=== PATIENT | male | born 1965 | race Two or more races ===

== ENCOUNTER 2020-06-01 07:59 | Outpatient (REF) | payer OTHER, SELFPAY ==
[2020-06-01 09:02] LABS: Cholesterol 200 mg/dL; HDL Cholesterol 44 mg/dL; LDL Cholesterol Calculated 80 mg/dl; Triglycerides 381 mg/dL
== END 2020-06-01 08:00 | disposition home or self-care (01) ==
LOC: HO.LAB 07:59
PROVIDERS: Visit Provider Internal Medicine
DX: E78.5 Hyperlipidemia, unspecified (principal)
CPT/HCPCS: 36415; 80061

== ENCOUNTER 2021-03-27 08:35 | Outpatient (REF) | payer BC, SELFPAY ==
[2021-03-27 08:47] LABS: MANUAL DIFF FLAG NO
[2021-03-27 09:02] LABS: Basophils Absolute Auto 0.1 X10*3/uL (0.0-0.2); Basophils Percent Auto 1.2 % (0-2); Eosinophils Absolute Auto 0.2 X10*3/uL (0.0-0.4); Eosinophils Percent Auto 2.5 % (0-4); Hematocrit 45.3 % (42.0-52.0); Hemoglobin 14.9 g/dl (14.0-18.0); Imm Gran Abs Auto 0.03 X10*3/uL (0.00-0.03); Imm Gran Pct Auto 0.4 % (0.0-0.4); Lymphocytes Absolute Auto 1.7 X10*3/uL (1.2-4.9); Mean Corpuscular HGB Conc 32.9 g/dl (31.0-36.0); Mean Corpuscular Hemoglobin 29.6 pg (27.0-33.0); Mean Corpuscular Volume 90.1 fL (80.0-98.0); Mean Platelet Volume 9.2 fL (9.4-12.4); Monocytes Absolute Auto 0.5 X10*3/uL (0.1-1.2); Monocytes Percent Auto 6.6 % (2-11); Neutrophils Absolute Auto 4.7 x10*3/uL (2.0-8.3); Neutrophils Percent Auto 65.3 % (45-73); Platelet Count 266 X10*3/uL (160-400); Red Blood Count 5.03 X10*6/uL (4.60-5.80); Red Cell Distribution Width 13.1 % (11.0-16.0); White Blood Count 7.3 X10*3/uL (4.8-10.8)
[2021-03-27 09:23] LABS: Alanine Aminotransferase 15 U/L (0-40); Albumin Level 4.5 g/dL (3.5-5.0); Alkaline Phosphatase 53 U/L (39-117); Anion Gap 10 (12-20); Aspartate Amino Transferase 17 U/L (5-37); Bilirubin Total 0.7 mg/dL (0.0-1.0); Blood Urea Nitrogen 13 mg/dL (9-16); Calcium 9.9 mg/dL (8.4-10.2); Carbon Dioxide 29 mmol/L (22-29); Chloride 104 mmol/L (96-108); Cholesterol 178 mg/dL; Estimated Glomerular Filt Rate > 60; Glucose Fasting 105 mg/dL (60-99); HDL Cholesterol 42 mg/dL; LDL Cholesterol Calculated 94 mg/dl; Sodium 139 mmol/L (135-145); Total Protein 7.1 g/dL (6.5-8.0); Triglycerides 212 mg/dL
[2021-03-27 09:45] LABS: Thyroid Stimulating Hormone 1.72 uIU/mL (0.32-4.0)
== END 2021-03-27 08:36 | disposition home or self-care (01) ==
LOC: HO.LAB 08:35
PROVIDERS: PCP Internal Medicine; Visit Provider Internal Medicine
DX: Z00.00 Encounter for general adult medical examination without abnormal findings (principal); E11.9 Type 2 diabetes mellitus without complications; E03.9 Hypothyroidism, unspecified
CPT/HCPCS: 36415; 80053; 80061; 84443; 85025

== ENCOUNTER 2021-07-05 07:09 | Outpatient (REF) | payer BC, SELFPAY ==
[2021-07-05 07:54] LABS: Cholesterol 212 mg/dL; HDL Cholesterol 42 mg/dL; Triglycerides 454 mg/dL
== END 2021-07-05 07:10 | disposition home or self-care (01) ==
LOC: HO.LAB 07:09
PROVIDERS: PCP Internal Medicine; Visit Provider Internal Medicine
DX: Z00.00 Encounter for general adult medical examination without abnormal findings (principal)
CPT/HCPCS: 36415; 80061

== ENCOUNTER 2021-08-09 07:11 | Outpatient (REF) | payer BC, SELFPAY ==
[2021-08-09 08:51] LABS: Cholesterol 186 mg/dL; HDL Cholesterol 38 mg/dL; LDL Cholesterol Calculated 110 mg/dl; Triglycerides 191 mg/dL
== END 2021-08-09 07:12 | disposition home or self-care (01) ==
LOC: HO.LAB 07:11
PROVIDERS: PCP Internal Medicine; Visit Provider Internal Medicine
DX: Z00.00 Encounter for general adult medical examination without abnormal findings (principal)
CPT/HCPCS: 36415; 80061

== ENCOUNTER 2021-10-20 08:00 | Outpatient (RCR) | payer BC, SELFPAY ==
--- NOTE | 2021-09-15 12:18 | MHC.PT.EP ---
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 UPON EXAM IMPAIRMENTS INCLUDE DECREASED ROM, DECREASED STRENGTH, ALTERED POSTURE AND POSITIONING, INCREASED UPPER TRAP GUARDING, AND INCREASED PAIN AND EDEMA. FUNCTIONAL LIMITATIONS INCLUDE DECREASED ABILITY TO PERFORM HOMEMAKING AND SELF-CARE TASKS, DECREASED ABILITY TO PERFORM PUSHING, PULLING, LIFTING AND REACHING. INABILITY TO DRIVE AND PERFORM WORK TASKS, DECREASED PARTICIPATION IN COMMUNITY AND RECREATIONAL ACTIVITIES AND DISRUPTED SLEEP. THE PT IS A GOOD CANDIDATE FOR SKILLED PT DUE TO AGE, POTENTIAL REMEDIATION OF IMPAIRMENTS, TYPICAL DISEASE/CONDITION PROGRESSION AND PROGNOSIS, COMORBIDITIES, AND MOTIVATION. PT WOULD BENEFIT FROM TAILORED PROGRAM OF THERAPEUTIC ACTIVITIES, FUNCTIONAL TRAINING, GAIT TRAINING, POSTURAL EDUCATION, NEUROMUSCULAR RE-EDUCATION, AND MODALITIES NEEDED. 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 Manual therapy to restore motion and function. Therapeutic exercise to improve strength and flexibility. Neuromuscular re-education for posture and balance. Therapeutic activities to return to functional activities of daily living. Electronically signed by: SYMONE LEUNG PT, DPT Please sign and return to therapist. Thank you for your referral.
== END 2021-11-28 09:25 | disposition home or self-care (01) ==
LOC: HO.PT 08:00
PROVIDERS: PCP Internal Medicine; Visit Provider Internal Medicine
DX: M54.12 Radiculopathy, cervical region (principal)
CPT/HCPCS: 97110; 97140; 97161; 97530

== ENCOUNTER 2021-12-26 10:29 | Outpatient (REF) | payer BC, SELFPAY ==
--- NOTE | ~2021-12-26 | MR_ITS ---
EXAMINATION: MR CERVICAL SPINE WITHOUT CONTRAST CLINICAL INFORMATION: 56-year-old with complaints of neck pain radiating to the left shoulder and mid back. Cervical disc degeneration, unspecified cervical region. COMPARISON: 07/19/2010 MRI TECHNIQUE: MRI of the cervical spine was obtained using routine sequences without contrast. Technical note: Images are degraded by poor signal. FINDINGS: Alignment: There is lordotic loss with mild reversal of the normal lordotic curvature centered at C5-C6 similar to the previous exam. There is trace anterolisthesis at C3-C4 on current study. Craniocervical Junction/C1-C2 Articulations: Intact and aligned. Visualized Intracranial Structures: Grossly unremarkable within the limitations of the exam. Limited study. Vertebral Bodies: Vertebral body heights are well-maintained stable in appearance. Disc Spaces and Endplates: Vadqmoon-ay-fdyukx intervertebral disc space height loss at C5-C6 and C6-C7 slightly progressed from previous exam with disc desiccation, Schmorl's nodes and spondylosis, mildly progressed. Anterolateral spondylosis asymmetric to the left at C7-T1 has developed on current study. Disc desiccation has developed at C3-C4 and C4-C5. Bone Marrow: Mild subchondral marrow edema is seen at the left C2-C3 and C3-C4 facet joints on current study. No other definite marrow edema is identified. No suspicious marrow replacing process identified. C2-C3: Small left paramedian disc osteophyte complex has developed since previous exam with minimal indentation of the left ventral thecal sac without cord impingement or canal stenosis. There is uncovertebral spurring on the left progressed from previous exam with severe left-sided facet arthropathy also progressed from previous study. There is moderate left-sided neural foraminal stenosis progressed from prior exam. Mild right-sided facet arthropathy also progressed. C3-C4: Small central disc osteophyte complex and slight anterolisthesis at this level results in mild indentation of the ventral thecal sac without cord impingement or canal stenosis. Severe left-sided facet arthropathy has progressed from previous study. Dbwb-br-jywdnpim right-sided facet arthrosis also progressed. Uncovertebral spurring noted bilaterally. Neural foramina at this level is difficult to evaluate due to excessive image noise and poor signal. However, there appears to be moderate right-sided and tjstqkof-np-cpvsrn left-sided neural foraminal stenosis progressed from previous exam. C4-C5: Small central disc protrusion with mild indentation of the ventral thecal sac without cord impingement on current study without canal stenosis. Vidludiw-nr-unrroj left-sided and thmc-uf-aoxvwypm right-sided facet arthropathy noted progressed from previous study. Uncovertebral spurring noted. Neural foramina at this level is difficult to evaluate due to excessive image noise and poor signal. However, there appears to be severe left-sided and moderate right-sided neural foraminal stenosis progressed from previous exam. C5-C6: Broad-based disc osteophyte complex again noted at this level, with effacement of the ventral dural sac resulting in slight ventral cord flattening, similar to the previous study associated with mild central canal stenosis unchanged in appearance. Bilateral uncovertebral and facet arthropathy are again noted, with mpyviwev-ia-tqhtul bilateral neural foraminal stenosis, probably progressed from previous exam. Neural foramina at this level is difficult to evaluate due to excessive image noise and poor signal. C6-C7: Broad-based disc protrusion similar to previous exam with moderate flattening the ventral dural sac without cord impingement. Borderline spinal canal stenosis is stable. Bilateral uncovertebral spurring is again noted. Neural foramina at this level is difficult to evaluate due to excessive image noise and poor signal. However, there is moderate right and severe left-sided neural foraminal stenosis, possibly somewhat progressed. C7-T1: No disc herniation or canal stenosis. Mild facet arthrosis noted bilaterally without significant canal or neuroforaminal stenosis. Small perineural cyst in the right neural foramen on current study. T1-T2: No disc herniation or canal stenosis. Mild facet arthropathy bilaterally noted with minor foraminal narrowing bilaterally. Spinal Cord: Small central syrinx in the spinal cord at C6-C7 stable in appearance. Tiny central syrinx at T1-T2 also unchanged with a small central syrinx at T2-T3 unchanged. Otherwise normal spinal cord signal without focal spinal cord lesion. Extracranial Soft Tissues: Limited assessment with suboptimal visualization. MR/MR cervical spine wo con IMPRESSION: 1. Slight lordotic reversal at C5-C6 stable in appearance with trace anterolisthesis at C3-C4 which is a new finding. 2. Discogenic degenerative changes and spondylosis at C5-C6 and C6-C7 progressed from previous study with disc osteophyte complex at C5-C6 and broad-based disc protrusion at C6-C7 similar to the previous study with mild flattening of the ventral aspect of the spinal cord at C5-C6 unchanged associated with stable mild central canal stenosis at this level. 3. Small left paramedian disc osteophyte complex at C2-C3, small central disc osteophyte complex at C3-C4 and small central disc protrusion at C4-C5 on current study without cord impingement or canal stenosis. 4. Severe facet arthropathy on the left at C2-C3 and C3-C4 and wjsyxupd-au-vlsnxs facet arthropathy on the left at C4-C5 also progressed from previous exam with some progression of right-sided facet arthrosis as well. There is multilevel uncovertebral spurring as well. Neural foramina at this level is difficult to evaluate due to excessive image noise and poor signal. However, there is multilevel bilateral bony neural foraminal stenosis as detailed by level above some of which may have progressed from previous study. Given the limitations of the current exam, CT may be beneficial for better evaluation of the neural foramina. 5. Small central syrinx cavities are noted at C6-C7, T1-T2 and T2-T3 unchanged in appearance, likely of a benign etiology.
== END 2021-12-26 10:30 | disposition home or self-care (01) ==
LOC: HO.MRI 10:29
PROVIDERS: Visit Provider Anesthesiology
DX: M50.30 Other cervical disc degeneration, unspecified cervical region (principal); M47.812 Spondylosis without myelopathy or radiculopathy, cervical region; M54.12 Radiculopathy, cervical region
CPT/HCPCS: 72141

== ENCOUNTER 2022-04-21 09:14 | Outpatient (REF) | payer BC, SELFPAY ==
[2022-04-21 09:36] LABS: MANUAL DIFF FLAG NO
[2022-04-21 10:01] LABS: Basophils Absolute Auto 0.1 X10*3/uL (0.0-0.2); Basophils Percent Auto 1.1 % (0-2); Eosinophils Absolute Auto 0.2 X10*3/uL (0.0-0.4); Eosinophils Percent Auto 2.3 % (0-4); Hemoglobin 15.3 g/dl (14.0-18.0); Imm Gran Abs Auto 0.04 X10*3/uL (0.00-0.03); Imm Gran Pct Auto 0.5 % (0.0-0.4); Lymphocytes Absolute Auto 2.1 X10*3/uL (1.2-4.9); Lymphocytes Percent Auto 26.5 % (20-40); Mean Corpuscular HGB Conc 33.3 g/dl (31.0-36.0); Mean Corpuscular Hemoglobin 29.5 pg (27.0-33.0); Mean Corpuscular Volume 88.8 fL (80.0-98.0); Mean Platelet Volume 9.2 fL (9.4-12.4); Monocytes Absolute Auto 0.5 X10*3/uL (0.1-1.2); Monocytes Percent Auto 6.5 % (2-11); Neutrophils Percent Auto 63.1 % (45-73); Platelet Count 296 X10*3/uL (160-400); Red Blood Count 5.18 X10*6/uL (4.60-5.80); Red Cell Distribution Width 13.3 % (11.0-16.0)
[2022-04-21 10:30] LABS: Alanine Aminotransferase 18 U/L (0-40); Albumin Level 4.6 g/dL (3.5-5.0); Alkaline Phosphatase 59 U/L (39-117); Anion Gap 15 (12-20); Aspartate Amino Transferase 18 U/L (5-37); Bilirubin Total 0.5 mg/dL (0.0-1.0); Blood Urea Nitrogen 16 mg/dL (9-16); Calcium 9.8 mg/dL (8.4-10.2); Carbon Dioxide 25 mmol/L (22-29); Chloride 104 mmol/L (96-108); Cholesterol 223 mg/dL; Estimated Glomerular Filt Rate > 60; Glucose Fasting 108 mg/dL (60-99); HDL Cholesterol 35 mg/dL; LDL Cholesterol Calculated 119 mg/dl; Potassium 4.6 mmol/L (3.3-5.1); Sodium 139 mmol/L (135-145); Total Protein 7.3 g/dL (6.5-8.0); Triglycerides 348 mg/dL
== END 2022-04-21 09:15 | disposition home or self-care (01) ==
LOC: HO.LAB 09:14
PROVIDERS: Visit Provider Internal Medicine
DX: Z13.0 Encounter for screening for diseases of the blood and blood-forming organs and certain disorders involving the immune mechanism (principal); I10 Essential (primary) hypertension; E78.5 Hyperlipidemia, unspecified
CPT/HCPCS: 36415; 80053; 80061; 85025

== ENCOUNTER → 2022-06-11 09:27 | Outpatient (BNVA) | payer BC, SELFPAY | PROVIDERS: PCP Internal Medicine; Visit Provider Anesthesiology | DX: Z13.89 Encounter for screening for other disorder (principal) ==

== ENCOUNTER 2022-06-13 10:00 | Outpatient (RCR) | payer BC, SELFPAY ==
--- NOTE | 2022-03-12 18:12 | MHC.PT.EP ---
[facility] [place] Office [place] Office [place] Office [address] Eulalia Biggs [address] [phone] F: [phone] F: [phone] F: [phone] F: [phone] Physical Therapy Plan of Care Date of Evaluation: Date of Surgery: N/A Diagnosis: spondylosis without myelopathy or radiculopathy, cervical region cervicalgia other cervical disc degeneration, unspecified cervical region Assessment: Pt is a pleasant and motivated 56yo M who presents to PT with neck pain. He previously had L UE radicular symptoms which improved with gabapentin. 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 He presents to PT with current impairments in pain, decreased cervical ROM, decreased L shoulder ROM, decreased strength, impaired posture, and soft tissue restrictions. He is limited functionally by lifting, reaching, turning his head, driving, and sleeping. He is an excellent candidate for skilled PT in order to address current impairments to facilitate return to PLOF. He is recommended to be seen 2x/week for 4 weeks and will be reassessed at that time. 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 Manual therapy to restore motion and function. Therapeutic exercise to improve strength and flexibility. Neuromuscular re-education for posture and balance. Therapeutic activities to return to functional activities of daily living. Electronically signed by: Reema Medina, PT, DPT Please sign and return to therapist. Thank you for your referral.
--- NOTE | 2022-06-13 13:55 | MHC.PT.DC ---
[facility] [place] Office [place] Office [place] Office [address] Eulalia Biggs [address] [phone] F: [phone] F: [phone] F: [phone] F: [phone] Physical Therapy Discharge Report Diagnosis: spondylosis without myelopathy or radiculopathy, cervical region cervicalgia other cervical disc degeneration, unspecified cervical region Date of Surgery: N/A Date of Evaluation: 03/12/22 Date of Discharge: 06/13/22 Treatments to Date: 14 Cancellations to Date: No Shows to Date: Discharge Status: Achieved Goals Improved Function Independent with HEP Discharge Summary: Pt was seen for PT from 03/12/22-06/13/22. Pt has made excellent progress since SOC. He has met his STGs and LTGs. He is able to sit for prolonged periods symptom free. He returned to golfing without pain. He has consistently had no neck pain, and no radicular symptoms. He demonstrates improvements in ROM, strength, and postural awareness. He is I with HEP. Pt is being D/C from skilled PT at this time. Provided pt with printed, updated copy of HEP and blue thera band and pt verbalized understanding. Pt reports no further questions or concerns for PT at this time. Electronically signed by: Reema Medina, PT, DPT Please sign and return to therapist. Thank you for your referral.
== END 2022-06-13 13:55 | disposition home or self-care (01) ==
LOC: HO.PT 10:00
PROVIDERS: PCP Internal Medicine; Visit Provider Anesthesiology
DX: M47.812 Spondylosis without myelopathy or radiculopathy, cervical region (principal); M50.30 Other cervical disc degeneration, unspecified cervical region
CPT/HCPCS: 97012; 97110; 97140; 97162; 97530

== ENCOUNTER 2022-08-31 07:25 | Outpatient (REF) | payer BC, SELFPAY ==
[2022-08-31 08:44] LABS: Cholesterol 202 mg/dL; HDL Cholesterol 42 mg/dL; LDL Cholesterol Calculated 111 mg/dl; Triglycerides 247 mg/dL
== END 2022-08-31 07:26 | disposition home or self-care (01) ==
LOC: HO.LAB 07:25
PROVIDERS: PCP Internal Medicine; Visit Provider Internal Medicine
DX: E78.5 Hyperlipidemia, unspecified (principal)
CPT/HCPCS: 36415; 80061

== ENCOUNTER 2023-01-04 08:13 | Outpatient (REF) | payer BC, SELFPAY ==
[2023-01-04 08:44] LABS: MANUAL DIFF FLAG NO
[2023-01-04 10:33] LABS: Basophils Absolute Auto 0.1 X10*3/uL (0.0-0.2); Basophils Percent Auto 0.8 % (0-2); Eosinophils Absolute Auto 0.1 X10*3/uL (0.0-0.4); Eosinophils Percent Auto 1.3 % (0-4); Hematocrit 45.6 % (42.0-52.0); Imm Gran Abs Auto 0.04 X10*3/uL (0.00-0.03); Imm Gran Pct Auto 0.5 % (0.0-0.4); Lymphocytes Absolute Auto 1.9 X10*3/uL (1.2-4.9); Lymphocytes Percent Auto 21.3 % (20-40); Mean Corpuscular HGB Conc 32.9 g/dl (31.0-36.0); Mean Corpuscular Hemoglobin 29.9 pg (27.0-33.0); Mean Platelet Volume 9.7 fL (9.4-12.4); Monocytes Absolute Auto 0.6 X10*3/uL (0.1-1.2); Monocytes Percent Auto 6.6 % (2-11); Neutrophils Percent Auto 69.5 % (45-73); Platelet Count 253 X10*3/uL (160-400); Red Blood Count 5.01 X10*6/uL (4.60-5.80); Red Cell Distribution Width 13.1 % (11.0-16.0); White Blood Count 8.7 X10*3/uL (4.8-10.8)
[2023-01-04 11:09] LABS: Alanine Aminotransferase 20 U/L (0-40); Albumin Level 4.2 g/dL (3.5-5.0); Alkaline Phosphatase 55 U/L (39-117); Anion Gap 13 (12-20); Aspartate Amino Transferase 18 U/L (5-37); Bilirubin Total 0.6 mg/dL (0.0-1.0); Blood Urea Nitrogen 14 mg/dL (9-16); Calcium 9.4 mg/dL (8.4-10.2); Carbon Dioxide 28 mmol/L (22-29); Chloride 102 mmol/L (96-108); Cholesterol 192 mg/dL (<200); Estimated Glomerular Filt Rate > 60; Glucose Fasting 94 mg/dL (60-99); HDL Cholesterol 48 mg/dL (>40); LDL Cholesterol Calculated 113 mg/dL (<100); Sodium 139 mmol/L (135-145); Total Protein 6.9 g/dL (6.5-8.0); Triglycerides 155 mg/dL (<150)
== END 2023-01-04 08:14 | disposition home or self-care (01) ==
LOC: HO.LAB 08:13
PROVIDERS: PCP Internal Medicine; Visit Provider Internal Medicine
DX: D64.9 Anemia, unspecified (principal); N28.9 Disorder of kidney and ureter, unspecified; E78.5 Hyperlipidemia, unspecified
CPT/HCPCS: 36415; 80053; 80061; 85025

== ENCOUNTER 2023-01-15 11:41 | Outpatient (AMB) | payer BC, SELFPAY ==
--- NOTE | 2023-01-15 11:41 | A.OFFPC_ITS ---
Vital Signs 01/15/23 11:42 01/15/23 11:54 Height 6 ft Weight 228 lb BMI 30.9 BP 150/90 H 148/90 H Blood Pressure Location Lt brachial Rt brachial Position Sitting Sitting Pulse 84 Pulse Source Pulse Oximeter Pulse Oximetry (%) 98 Oxygen Delivery Method Room Air Intake Visit Reasons: 4 month f/u - due for colonoscopy Publications Manager: Not Required per policy Accompanied by: Self / Same As Patient Allergies No Known Allergies [No Known Allergies*] Allergy (Verified 01/15/23 11:42) Medication List - Last Reconciled 01/15/23 by Joe Reyes MD atorvastatin 40 mg PO QPM cyclobenzaprine 10 mg PO TID PRN fenofibrate 160 mg PO DAILY gabapentin 300 mg PO TID 30 days Tobacco use date assessed: 04/24/22 Dental Screening Dental Screen Date: 01/15/23 Did you have a dental visit in the last 12 months?: Yes Did you have a dental problem in the last 6 months where you did not have access to dental care?: No Was dental information given to patient?: Patient has dentist HPI 4 month f/u - due for colonoscopy HPI Details hyperlipidemia on rx; doing well; compliant [facility] Medical History Hyperlipidemia Surgical History No pertinent past surgical history Family History Father CAD (coronary artery disease) Stroke Mother Hypothyroidism Hypercholesterolemia Brother No problems noted. Brother No problems noted. Brother No problems noted. Sister No problems noted. Son No problems noted. Son No problems noted. Social History Housing: House Patient Tobacco Use Status: Never used Tobacco Tobacco use type: Cigarette e-Cigarette/Vaping Use: Never Used Second Hand Smoke Exposure: No service: No Current occupational status: employed Cognitive needs: No Hearing needs: No Vision needs: No Questionnaire PHQ-9 Over the last 2 weeks, how often have you been bothered by any of the following problems? 1. Little interest or pleasure in doing things: not at all 2. Feeling down, depressed, or hopeless: not at all 3. Trouble falling or staying asleep, or sleeping too much: not at all 4. Feeling tired or having little energy: not at all 5. Poor appetite or overeating: not at all 6. Feeling bad about yourself - or that you are a failure or have let yourself or your family down: not at all 7. Trouble concentrating on things, such as reading the newspaper or watching television: not at all 8. Moving or speaking so slowly that other people could have noticed. Or the opposite - being so fidgety or restless that you have been moving around a lot more than usual: not at all 9. Thoughts that you would be better off or of hurting yourself in some way: not at all Total score: 0 Depression Screening Interpretation: Negative Depression Screening Done: Yes Source: Developed by Drs. Bob Valentine, Beverly Johnson, Samuel Estrada and colleagues, with an educational peewee from [employer]. Thrive Questionnaire Date Thrive assessed: 04/24/22 AUDIT C Alcohol Use Questionnaire (AUDIT-C) 1. How often do you have a drink containing alcohol?: 2-3 times a week 2. How many drinks containing alcohol do you have on a typical day when you are drinking?: 1 or 2 Total Score: 3 Score Reviewed/Action Taken: Yes KENROY-7 AMB Questionnaire KENROY-7 Date KENROY - 7 assessed: 04/24/22 Source: Developed by Drs. Bob Valentine, Beverly Johnson, Samuel Estrada and colleagues, with an educational peewee from [employer]. Review of Systems Const Denies chills, Denies headache(s) and Denies weight loss ENT Denies headache(s) Card Denies chest pain, Denies syncope, Denies irregular heart rhythm and Denies dyspnea Resp Denies chest congestion, Denies cough and Denies dyspnea GI Denies abdominal pain, Denies change in stool character, Denies nausea and Denies vomiting Musc Denies deformity and Denies joint swelling Neuro Denies syncope and Denies headache(s) Physical exam (Primary Care) Vital Signs: Last Vital Signs Pulse 84 01/15/23 11:42 BP 148/90 H 01/15/23 11:54 Pulse Ox 98 01/15/23 11:42 Oxygen Delivery Method Room Air 01/15/23 11:42 BMI result Body Mass Index 30.9 Tobacco/Smoking Status: Tobacco use Status Tobacco use date assessed 04/24/22 01/15/23 11:46 Patient Tobacco Use Status Never used Tobacco 01/15/23 11:46 Tobacco use type Cigarette 01/15/23 11:46 e-Cigarette/Vaping Use Never Used 01/15/23 11:46 PHQ-9: PHQ-9 Score PHQ-9: Total score 0 01/15/23 11:46 Depression Screening Interpretation: Negative Thrive Assessment: Date of Thrive Assessment Date Thrive assessed 04/24/22 01/15/23 11:46 Const General: cooperative, comfortable, no acute distress and alert Neck Neck: Yes no lymphadenopathy Thyroid: Thyroid normal Resp Effort & Inspection: normal respiratory effort Auscultation: clear to auscultation bilaterally Percussion: percussion normal Cardio Jugular venous distension: no JVD Palpation: normal PMI Rate: regular rate Rhythm: regular rhythm Heart sounds: S1 normal heart sound present and S2 normal heart sound present GI Inspection: Yes normal to inspection Palpation (GI): No hepatosplenomegaly present Skin General skin exam: no rashes or lesions noted Extrem General: Yes no clubbing, cyanosis or edema Office Procedures Flu Questionnaire Does the patient have a severe egg allergy?: No Does the patient have severe life threatening allergies?: No Does the patient have a fever or illness today?: No Has the patient ever had Guillain-Sawyer Syndrome?: No Has the patient ever had any past reaction to a flu shot?: No Immunizations flu vacc [id number] 6mos up(PF) 60 mcg(15 mcgx4)/0.5 mL IM syringe Performing Provider: Joe Reyes MD Performing Location: [facility] Administered by: CARMELA Enriquez on 01/15/23 11:53 Dose Route Admin Location Dispensed Lot Number Expiration Date NDC Strategy Lead 0.5 mL IM Left Deltoid 0.5 mL [id number] 10/13/23 34950-000-52 [employer] VIS Given Date VIS Provided VIS Publication Date 01/15/23 Single Vaccine 20 Eligibility Eligibility Date Funding Source Not [facility] Eligible 01/15/23 Private Assessment and Plan Assessment & Plan (1) Hyperlipidemia: Code(s): E78.5 - Hyperlipidemia, unspecified Plan: stable; same rx Orders: Orders Influenza [id number] Immunization Today Z23 - Encounter for immunization Lipid Panel Today E78.5 - Hyperlipidemia, unspecified Coding Level of Care Code Est Pt Level 3 (18629) Diagnoses Hyperlipidemia E78.5
[2023-01-15 11:42] VITALS: BP 150/90; PULSE 84; O2SAT 98; BMI 30.9
[2023-01-15 11:54] VITALS: BP 148/90
== END 2023-01-15 11:59 | disposition home or self-care (01) ==
PROVIDERS: PCP Internal Medicine; Visit Provider Internal Medicine
DX: E78.5 Hyperlipidemia, unspecified (principal); Z23 Encounter for immunization
CPT/HCPCS: 90471; 90686; 99213

== ENCOUNTER 2023-05-02 07:34 | Outpatient (REF) | payer BC, SELFPAY ==
[2023-05-02 08:36] LABS: Cholesterol 202 mg/dL (<200); HDL Cholesterol 36 mg/dL (>40); LDL Cholesterol Calculated 123 mg/dL (<100); Triglycerides 218 mg/dL (<150)
== END 2023-05-02 07:35 | disposition home or self-care (01) ==
LOC: HO.LAB 07:34
PROVIDERS: PCP Internal Medicine; Visit Provider Internal Medicine
DX: E78.5 Hyperlipidemia, unspecified (principal)
CPT/HCPCS: 36415; 80061

== ENCOUNTER 2023-05-03 09:27 | Outpatient (AMB) | payer BC, SELFPAY ==
[2023-05-03 09:30] VITALS: BP 130/88; PULSE 89; O2SAT 99; BMI 30.8
--- NOTE | 2023-05-03 09:30 | MHC.PC.OV ---
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 Civil: Not Required per policy Accompanied by: Self / Same As Patient Allergies No Known Allergies [No Known Allergies*] Allergy (Verified 05/03/23 09:30) Medication List - Last Reconciled 05/03/23 by Joe Reyes MD atorvastatin 40 mg PO QPM cyclobenzaprine 10 mg PO TID PRN fenofibrate 160 mg PO DAILY gabapentin 300 mg PO TID 30 days Tobacco use date assessed: 05/03/23 Dental Screening Dental Screen Date: 05/03/23 Did you have a dental visit in the last 12 months?: Yes Did you have a dental problem in the last 6 months where you did not have access to dental care?: No Was dental information given to patient?: Patient has dentist HPI 3 month follow up ( medications ) HPI Details hyperlipidemia on rx; doing well; chol increased due to dietary indiscretion PFSH Medical History Hyperlipidemia Surgical History No pertinent past surgical history Family History Father CAD (coronary artery disease) Stroke Mother Hypothyroidism Hypercholesterolemia Brother No problems noted. Brother No problems noted. Brother No problems noted. Sister No problems noted. Son No problems noted. Son No problems noted. Social History Housing: House Patient Tobacco Use Status: Never used Tobacco Tobacco use type: Cigarette e-Cigarette/Vaping Use: Never Used Second Hand Smoke Exposure: No service: No Current occupational status: employed Cognitive needs: No Hearing needs: No Vision needs: No Questionnaire PHQ-9 Over the last 2 weeks, how often have you been bothered by any of the following problems? 1. Little interest or pleasure in doing things: not at all 2. Feeling down, depressed, or hopeless: not at all 3. Trouble falling or staying asleep, or sleeping too much: not at all 4. Feeling tired or having little energy: not at all 5. Poor appetite or overeating: not at all 6. Feeling bad about yourself - or that you are a failure or have let yourself or your family down: not at all 7. Trouble concentrating on things, such as reading the newspaper or watching television: not at all 8. Moving or speaking so slowly that other people could have noticed. Or the opposite - being so fidgety or restless that you have been moving around a lot more than usual: not at all 9. Thoughts that you would be better off or of hurting yourself in some way: not at all Total score: 0 Depression Screening Interpretation: Negative Depression Screening Done: Yes [id number] - PHQ-9 Billing: Yes Source: Developed by Drs. Bob Valentine, Beverly Johnson, Samuel Estrada and colleagues, with an educational peewee from [employer]. Thrive Questionnaire Date Thrive assessed: 05/03/23 I am a: Patient What is your living situation today?: I have a steady place to live Within the past 12 months, did the food you bought not last and you didn't have the money to get more?: Never true Within the past 12 months, did you worry whether your food would run out before you got money to buy more?: Never true Do you have trouble paying for medicines?: No Do you have trouble getting transportation to medical appointments?: No Do you have trouble paying your heating and electricity bill?: No Do you have trouble taking care of your child, family member or friend?: No Do you have trouble with day-to-day activities such as bathing, preparing meals, shopping, managing finances, etc.?: No Are you currently unemployed and looking for a job?: No Are you interested in more education?: No Please select the resources that you would like help with: None THRIVE Score: 0 AUDIT C Alcohol Use Questionnaire (AUDIT-C) 1. How often do you have a drink containing alcohol?: 2-3 times a week 2. How many drinks containing alcohol do you have on a typical day when you are drinking?: 1 or 2 Total Score: 3 Score Reviewed/Action Taken: Yes KENROY-7 AMB Questionnaire KENROY-7 Date KENROY - 7 assessed: 05/03/23 Feeling nervous, anxious, or on edge: 0 = Not at all Not being able to stop or control worryin = Not at all Worrying too much about different things: 0 = Not at all Trouble relaxin = Not at all Being so restless that it is hard to sit still: 0 = Not at all Becoming easily annoyed or irritable: 0 = Not at all Feeling afraid as if something awful might happen: 0 = Not at all Total KENROY-7 score (0-4 normal; 5-9 mild; 10-14 moderate; 15-21 severe): 0 Source: Developed by Drs. Bob Valentine, Beverly Johnson, Samuel Estrada and colleagues, with an educational peewee from [employer]. KENROY-7 Assessment Billing KENROY-7 Assessment Tool: KENROY-7 Assessment 55345 Review of Systems Const Denies chills, Denies headache(s) and Denies weight loss ENT Denies headache(s) Card Denies chest pain, Denies syncope, Denies irregular heart rhythm and Denies dyspnea Resp Denies chest congestion, Denies cough and Denies dyspnea GI Denies abdominal pain, Denies change in stool character, Denies nausea and Denies vomiting Musc Denies deformity and Denies joint swelling Neuro Denies syncope and Denies headache(s) Physical exam (Primary Care) Vital Signs: Last Vital Signs Pulse 89 05/03/23 09:30 BP 130/88 05/03/23 09:30 Pulse Ox 99 05/03/23 09:30 Oxygen Delivery Method Room Air 05/03/23 09:30 BMI result Body Mass Index 30.8 Tobacco/Smoking Status: Tobacco use Status Tobacco use date assessed 05/03/23 05/03/23 09:36 Patient Tobacco Use Status Never used Tobacco 05/03/23 09:36 Tobacco use type Cigarette 05/03/23 09:36 e-Cigarette/Vaping Use Never Used 05/03/23 09:36 PHQ-9: PHQ-9 Score PHQ-9: Total score 0 05/03/23 09:36 Depression Screening Interpretation: Negative Thrive Assessment: Date of Thrive Assessment Date Thrive assessed 05/03/23 05/03/23 09:36 Const General: cooperative, comfortable, no acute distress and alert Neck Neck: Yes no lymphadenopathy Thyroid: Thyroid normal Resp Effort & Inspection: normal respiratory effort Auscultation: clear to auscultation bilaterally Percussion: percussion normal Cardio Jugular venous distension: no JVD Palpation: normal PMI Rate: regular rate Rhythm: regular rhythm Heart sounds: S1 normal heart sound present and S2 normal heart sound present GI Inspection: Yes normal to inspection Palpation (GI): No hepatosplenomegaly present Skin General skin exam: no rashes or lesions noted Extrem General: Yes no clubbing, cyanosis or edema Assessment and Plan Assessment & Plan (1) Hyperlipidemia: Code(s): E78.5 - Hyperlipidemia, unspecified Plan: same rx; improve diet Orders: Orders Lipid Panel Today E78.5 - Hyperlipidemia, unspecified Medications: Refilled atorvastatin 40 mg PO QPM 90 tabs 8RF Coding Level of Care Code Est Pt Level 3 (69664) Diagnoses Hyperlipidemia E78.5 Additional Codes KENROY-7 Assessment Billing - KENROY-7 Assessment Tool: KENROY-7 Assessment 50935 ([id number])
== END 2023-05-03 09:45 | disposition home or self-care (01) ==
PROVIDERS: PCP Internal Medicine; Visit Provider Internal Medicine
DX: E78.5 Hyperlipidemia, unspecified (principal)
CPT/HCPCS: 99213

== ENCOUNTER 2023-07-22 11:12 | Outpatient (AMB) | payer BC, SELFPAY ==
--- NOTE | 2023-07-22 11:36 | MHC.OFFVIS ---
Intake Vital Signs 07/22/23 11:37 Height 6 ft Weight 232 lb BMI 31.5 BP 148/82 H Blood Pressure Location Lt brachial Position Sitting Respiration 18 Pulse 84 Pulse Source Pulse Oximeter Pulse Oximetry (%) 96 Oxygen Delivery Method Room Air Intake Visit Reasons: medication follow up Intake Note: Patient comes in medication follow up. Reports pain 07/23. Allergies No Known Allergies [No Known Allergies*] Allergy (Verified 05/03/23 09:30) HPI HPI Comments History of Present Illness Details Niranjan is very pleasant 58 years old gentleman who came to this office after a long period of absence. He reports that he needs a refill of his gabapentin. Last time I started him on gabapentin and he reported very good pain relief. However today apparently he is stated that his pain relief was related to the injection which what I suppose was ultrasound-guided procedure, however the target of the injection was unknown to me. The patient does not know the target. He stated that that injection helped him for a long period of time up to 36 months. He requests me to perform the same injection. I requested him to bring me the operative note of this procedure and I will see if I can repeat this procedure for him here. He will bring me the note and I will schedule this injection. I will renew his gabapentin. results of the MRI dictated as below.? There are some moderate foraminal stenosis and there is some very advanced especially on the left side arthritis in the left as well as in the right side.? He also has significant reduction of the lordosis.?? Of note there is small syrinx cavities in his neck and thoracic spinal cord however he denies any loss of touch a temperature sensation in the upper extremities. Prior:? C/O pain in the left side of the neck radiating into the left upper extremity to the triceps and the level of elbow and into the forearm, he also reports sensation of weakness and numbness in the left upper extremity.? He reports that lifting weight with the left upper extremity and holding heavy loads feels like his left hand is about to give up.? He avoids heavy lifting and heavy holding to perform by the left hand or arm.? 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 He reports that 11 years ago in 2010 he was working on a concrete with a sledgehammer and the he started to experience severe pain radiating into the right upper extremity to the level of triceps and into the elbow.? He received some sort of the injection into the back of his upper shoulder and that eliminated that pain sensation for the next 10 years.? However last few months he started to experience pain is above on the left side.? He reports it is almost the mirror sensation of his old pain on the [facility] Medical History Hyperlipidemia Surgical History No pertinent past surgical history Family History Father CAD (coronary artery disease) Stroke Mother Hypothyroidism Hypercholesterolemia Brother No problems noted. Brother No problems noted. Brother No problems noted. Sister No problems noted. Son No problems noted. Son No problems noted. Social History Housing: House Patient Tobacco Use Status: Never used Tobacco Tobacco use type: Cigarette e-Cigarette/Vaping Use: Never Used Second Hand Smoke Exposure: No service: No Current occupational status: employed Cognitive needs: No Hearing needs: No Vision needs: No Review of Systems Const All systems reviewed & are unremarkable except as noted in HPI and below ENT Reports Normal hearing present Neuro Reports Normal hearing present and Denies Sensory deficit (Neuro) Physical Exam Vital Signs: Last Vital Signs Pulse 84 07/22/23 11:37 Resp 18 07/22/23 11:37 BP 148/82 H 07/22/23 11:37 Pulse Ox 96 07/22/23 11:37 Oxygen Delivery Method Room Air 07/22/23 11:37 BMI result Body Mass Index 31.5 Const General: no acute distress Orientation/consciousness: patient oriented x3 Limitations: no limitations Eyes General: appearance normal, both eyes and all related structures Pupils: Equal, round and reactive pupils present EOM: EOMs intact bilaterally Neck Other: Tenderness on palpation in paraspinal spinal region cervical spine. Spurling maneuver is negative on the left, Lhermitte maneuver is negative. Sneezing and coughing, Valsalva maneuvers aggravate his pain. Reports tingling sensation in the left forearm and hand. Chest Chest palpation & inspection: normal inspection of the chest Resp Effort & Inspection: normal respiratory effort, able to speak in complete sentences, normal respiratory pattern, no audible wheezes and no cough Cardio Jugular venous distension: no JVD GI Inspection: Yes normal to inspection Neuro General: patient oriented x3 and gait normal Cranial nerves: Yes Equal, round and reactive pupils present and Yes Normal hearing present Gait exam (Neuro): Normal gait present Motor exam (neuro): 5/5 motor strength present throughout Sensory Exam: No Sensory deficit (Neuro) Extrem General: No pedal edema Psych Speech and movement: Normal speech and movement present Affect: normal affect Attitude: cooperative Thought process: Normal thought process present Thought content: Normal thought content present Insight: Good insight present (Psych) Judgement: Good judgement present (Psych) Results Reviewed Results Reviewed: MR CERVICAL SPINE WITHOUT CONTRAST CLINICAL INFORMATION: 56-year-old with complaints of neck pain radiating to the left shoulder and mid back. Cervical disc degeneration, unspecified cervical region. COMPARISON: 07/19/2010 MRI TECHNIQUE: MRI of the cervical spine was obtained using routine sequences without contrast. Technical note: Images are degraded by poor signal. FINDINGS: Alignment: There is lordotic loss with mild reversal of the normal lordotic curvature centered at C5-C6 similar to the previous exam. There is trace anterolisthesis at C3-C4 on current study. Craniocervical Junction/C1-C2 Articulations: Intact and aligned. Visualized Intracranial Structures: Grossly unremarkable within the limitations of the exam. Limited study. Vertebral Bodies: Vertebral body heights are well-maintained stable in appearance. Disc Spaces and Endplates: Vusgrmhi-se-tvnhii intervertebral disc space height loss at C5-C6 and C6-C7 slightly progressed from previous exam with disc desiccation, Schmorl's nodes and spondylosis, mildly progressed. Anterolateral spondylosis asymmetric to the left at C7-T1 has developed on current study. Disc desiccation has developed at C3-C4 and C4-C5. Bone Marrow: Mild subchondral marrow edema is seen at the left C2-C3 and C3-C4 facet joints on current study. No other definite marrow edema is identified. No suspicious marrow replacing process identified. C2-C3: Small left paramedian disc osteophyte complex has developed since previous exam with minimal indentation of the left ventral thecal sac without cord impingement or canal stenosis. There is uncovertebral spurring on the left progressed from previous exam with severe left-sided facet arthropathy also progressed from previous study. There is moderate left-sided neural foraminal stenosis progressed from prior exam. Mild right-sided facet arthropathy also progressed. C3-C4: Small central disc osteophyte complex and slight anterolisthesis at this level results in mild indentation of the ventral thecal sac without cord impingement or canal stenosis. Severe left-sided facet arthropathy has progressed from previous study. Crdl-rw-lelbdxpk right-sided facet arthrosis also progressed. Uncovertebral spurring noted bilaterally. Neural foramina at this level is difficult to evaluate due to excessive image noise and poor signal. However, there appears to be moderate right-sided and umojunue-uk-cfibki left-sided neural foraminal stenosis progressed from previous exam. C4-C5: Small central disc protrusion with mild indentation of the ventral thecal sac without cord impingement on current study without canal stenosis. Ggvlwzte-uo-jntkdk left-sided and kryp-zo-pfnfktxk right-sided facet arthropathy noted progressed from previous study. Uncovertebral spurring noted. Neural foramina at this level is difficult to evaluate due to excessive image noise and poor signal. However, there appears to be severe left-sided and moderate right-sided neural foraminal stenosis progressed from previous exam. C5-C6: Broad-based disc osteophyte complex again noted at this level, with effacement of the ventral dural sac resulting in slight ventral cord flattening, similar to the previous study associated with mild central canal stenosis unchanged in appearance. Bilateral uncovertebral and facet arthropathy are again noted, with dbzutjny-cr-ragxmo bilateral neural foraminal stenosis, probably progressed from previous exam. Neural foramina at this level is difficult to evaluate due to excessive image noise and poor signal. C6-C7: Broad-based disc protrusion similar to previous exam with moderate flattening the ventral dural sac without cord impingement. Borderline spinal canal stenosis is stable. Bilateral uncovertebral spurring is again noted. Neural foramina at this level is difficult to evaluate due to excessive image noise and poor signal. However, there is moderate right and severe left-sided neural foraminal stenosis, possibly somewhat progressed. C7-T1: No disc herniation or canal stenosis. Mild facet arthrosis noted bilaterally without significant canal or neuroforaminal stenosis. Small perineural cyst in the right neural foramen on current study. T1-T2: No disc herniation or canal stenosis. Mild facet arthropathy bilaterally noted with minor foraminal narrowing bilaterally. Spinal Cord: Small central syrinx in the spinal cord at C6-C7 stable in appearance. Tiny central syrinx at T1-T2 also unchanged with a small central syrinx at T2-T3 unchanged. Otherwise normal spinal cord signal without focal spinal cord lesion. Extracranial Soft Tissues: Limited assessment with suboptimal visualization. MR/MR cervical spine wo con IMPRESSION: 1. Slight lordotic reversal at C5-C6 stable in appearance with trace anterolisthesis at C3-C4 which is a new finding. ? 2. Discogenic degenerative changes and spondylosis at C5-C6 and C6-C7 progressed from previous study with disc osteophyte complex at C5-C6 and broad-based disc protrusion at C6-C7 similar to the previous study with mild flattening of the ventral aspect of the spinal cord at C5-C6 unchanged associated with stable mild central canal stenosis at this level. ? 3. Small left paramedian disc osteophyte complex at C2-C3, small central disc osteophyte complex at C3-C4 and small central disc protrusion at C4-C5 on current study without cord impingement or canal stenosis. ? 4. Severe facet arthropathy on the left at C2-C3 and C3-C4 and kxwbztqd-pj-qauttn facet arthropathy on the left at C4-C5 also progressed from previous exam with some progression of right-sided facet arthrosis as well. There is multilevel uncovertebral spurring as well. Neural foramina at this level is difficult to evaluate due to excessive image noise and poor signal. However, there is multilevel bilateral bony neural foraminal stenosis as detailed by level above some of which may have progressed from previous study. Given the limitations of the current exam, CT may be beneficial for better evaluation of the neural foramina. ? 5. Small central syrinx cavities are noted at C6-C7, T1-T2 and T2-T3 unchanged in appearance, likely of a benign etiology. ? Assessment & Plan Assessment & Plan (1) Cervicalgia: Code(s): M54.2 - Cervicalgia (2) Spondylosis of cervical spine: Code(s): M47.812 - Spondylosis without myelopathy or radiculopathy, cervical region (3) Cervical radiculopathy: Code(s): M54.12 - Radiculopathy, cervical region (4) Degeneration, intervertebral disc, cervical: Code(s): M50.30 - Other cervical disc degeneration, unspecified cervical region Plan I will renew his gabapentin as it was prescribed before. I also will wait until he will bring me the description of the operative note of the procedure he had to alleviate his pain in the shoulder on the left. After that I will be able to decide whether or not I can repeat this injection here. If it is so I will schedule him for the appointment for the injection with me. It sounds like it was ultrasound-guided procedure. He refers that he received 3 years of pain relief from the procedure. Coding Level of Care Code Est Pt Level 3 (21523) Diagnoses Cervicalgia M54.2 Spondylosis of cervical spine M47.812 Cervical radiculopathy M54.12 Degeneration, intervertebral disc, cervical M50.30
[2023-07-22 11:37] VITALS: BP 148/82; PULSE 84; RESP 18; O2SAT 96; BMI 31.5
== END 2023-07-22 11:53 | disposition home or self-care (01) ==
PROVIDERS: PCP Internal Medicine; Visit Provider Anesthesiology
DX: M47.812 Spondylosis without myelopathy or radiculopathy, cervical region (principal); M54.12 Radiculopathy, cervical region; M50.30 Other cervical disc degeneration, unspecified cervical region
CPT/HCPCS: 99213

== ENCOUNTER → 2023-07-22 11:12 | Outpatient (BNVA) | payer BC, SELFPAY | PROVIDERS: PCP Internal Medicine; Visit Provider Anesthesiology ==

== ENCOUNTER 2023-08-14 07:20 | Outpatient (REF) | payer BC, SELFPAY ==
[2023-08-14 08:33] LABS: Cholesterol 181 mg/dL (<200); HDL Cholesterol 33 mg/dL (>40); LDL Cholesterol Calculated 105 mg/dL (<100); Triglycerides 216 mg/dL (<150)
== END 2023-08-14 07:21 | disposition home or self-care (01) ==
LOC: HO.LAB 07:20
PROVIDERS: Visit Provider Internal Medicine
DX: E78.5 Hyperlipidemia, unspecified (principal)
CPT/HCPCS: 36415; 80061

== ENCOUNTER 2023-08-16 11:21 | Outpatient (AMB) | payer BC, SELFPAY ==
[2023-08-16 11:28] VITALS: BP 142/90; PULSE 77; O2SAT 96; BMI 31.7
--- NOTE | 2023-08-16 11:28 | MHC.PC.OV ---
Vital Signs 08/16/23 11:28 Height 6 ft Weight 234 lb 0.2 oz BMI 31.7 BP 142/90 H Blood Pressure Location Lt brachial Position Sitting Pulse 77 Pulse Source Pulse Oximeter Pulse Oximetry (%) 96 Oxygen Delivery Method Room Air Intake Visit Reasons: 3mth f/u Intake Note: Patient is here to follow up on 3 months Neuropathologist Required: No Allergies No Known Allergies [No Known Allergies*] Allergy (Verified 08/16/23 11:29) Medication List - Last Reconciled 08/16/23 by Joe Reyes MD atorvastatin 40 mg PO QPM cyclobenzaprine 10 mg PO TID PRN fenofibrate 160 mg PO DAILY gabapentin 300 mg PO TID 30 days Tobacco use date assessed: 08/16/23 Dental Screening Dental Screen Date: 05/03/23 HPI 3mth f/u HPI Details hyperlipidemia on rx; doing well PFSH Medical History Hyperlipidemia Surgical History No pertinent past surgical history Family History Father CAD (coronary artery disease) Stroke Mother Hypothyroidism Hypercholesterolemia Brother No problems noted. Brother No problems noted. Brother No problems noted. Sister No problems noted. Son No problems noted. Son No problems noted. Social History Housing: House Patient Tobacco Use Status: Never used Tobacco Tobacco use type: Cigarette e-Cigarette/Vaping Use: Never Used Second Hand Smoke Exposure: No service: No Current occupational status: employed Cognitive needs: No Hearing needs: No Vision needs: No Questionnaire Thrive Questionnaire Date Thrive assessed: 05/03/23 AUDIT C Alcohol Use Questionnaire (AUDIT-C) 1. How often do you have a drink containing alcohol?: 2-3 times a week 2. How many drinks containing alcohol do you have on a typical day when you are drinking?: 1 or 2 Total Score: 3 Score Reviewed/Action Taken: Yes KENROY-7 AMB Questionnaire KENROY-7 Date KENROY - 7 assessed: 05/03/23 Source: Developed by Drs. Bob Valentine, Beverly B.W. Samuel Johnson and colleagues, with an educational peewee from [employer]. Review of Systems Const Denies chills, Denies headache(s) and Denies weight loss ENT Denies headache(s) Card Denies chest pain, Denies syncope, Denies irregular heart rhythm and Denies dyspnea Resp Denies chest congestion, Denies cough and Denies dyspnea GI Denies abdominal pain, Denies change in stool character, Denies nausea and Denies vomiting Musc Denies deformity and Denies joint swelling Neuro Denies syncope and Denies headache(s) Physical exam (Primary Care) Vital Signs: Last Vital Signs Pulse 77 08/16/23 11:28 BP 142/90 H 08/16/23 11:28 Pulse Ox 96 08/16/23 11:28 Oxygen Delivery Method Room Air 08/16/23 11:28 BMI result Body Mass Index 31.7 Tobacco/Smoking Status: Tobacco use Status Tobacco use date assessed 08/16/23 08/16/23 11:33 Patient Tobacco Use Status Never used Tobacco 08/16/23 11:33 Tobacco use type Cigarette 08/16/23 11:33 e-Cigarette/Vaping Use Never Used 08/16/23 11:33 Thrive Assessment: Date of Thrive Assessment Date Thrive assessed 05/03/23 08/16/23 11:33 Const General: cooperative, comfortable, no acute distress and alert Neck Neck: Yes no lymphadenopathy Thyroid: Thyroid normal Resp Effort & Inspection: normal respiratory effort Auscultation: clear to auscultation bilaterally Percussion: percussion normal Cardio Jugular venous distension: no JVD Palpation: normal PMI Rate: regular rate Rhythm: regular rhythm Heart sounds: S1 normal heart sound present and S2 normal heart sound present GI Inspection: Yes normal to inspection Palpation (GI): No hepatosplenomegaly present Skin General skin exam: no rashes or lesions noted Extrem General: Yes no clubbing, cyanosis or edema Assessment and Plan Assessment & Plan (1) Hyperlipidemia: Code(s): E78.5 - Hyperlipidemia, unspecified Plan: stable; same rx Orders: Orders Lipid Panel Today Z13.220 - Encounter for screening for lipoid disorders Coding Level of Care Code Est Pt Level 3 (98908) Diagnoses Hyperlipidemia E78.5
== END 2023-08-16 11:46 | disposition home or self-care (01) ==
PROVIDERS: PCP Internal Medicine; Visit Provider Internal Medicine
DX: E78.5 Hyperlipidemia, unspecified (principal)
CPT/HCPCS: 99213

== ENCOUNTER 2023-09-02 09:16 | Day surgery (SDC) | payer BC, SELFPAY ==
[2023-08-29 11:16] VITALS: BMI 30.4
[2023-08-29 11:19] VITALS: BMI 31.7
--- NOTE | 2023-08-30 10:08 | P.CONAN_ITS ---
Documented by User: Jessika Aguero NP 08/30/23 10:08 HPI - Anesthesia Eval Consult details Narrative: 58yo M for Colonoscopy PMFSH Active Problems Active Problems: All Active Problems Psoriasis (Acute) Degeneration, intervertebral disc, cervical (Acute) Spondylosis of cervical spine (Acute) Cervicalgia (Acute) Cervical radiculopathy (Acute) Sciatica (Acute) Hyperlipidemia (Acute) Past Medical History Medical History (Updated 08/29/23 @ 11:16 by Lisa Chino RN) Neck pain Psoriasis FAY on CPAP Hyperlipidemia Family History Family History Father CAD (coronary artery disease) Stroke Mother Hypothyroidism Hypercholesterolemia Brother No problems noted. Brother No problems noted. Brother No problems noted. Sister No problems noted. Son No problems noted. Son No problems noted. 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 Cognitive needs: No Hearing needs: No Vision needs: No Meds Allergies Allergy/AdvReac Type Severity Reaction Status Date / Time No Known Allergies Allergy Verified 08/29/23 11:12 [No Known Allergies*] Home Medications ?Medication ?Instructions ?Recorded ?Confirmed ?Last Taken ?Type 24 Hour Allergy Relief 09/02/23 09/02/23 History Exam Height,Weight and Vital Signs: Height 6 ft Weight 106.141 kg Assessment and Plan Assessment Anesthesia Assessment: Chart Reviewed Documented by User: Silvia Manuel MD 09/02/23 09:39 [facility] Past Medical History Medical History (Updated 08/29/23 @ 11:16 by Lisa Chino, RIKKI) Neck pain Psoriasis FAY on CPAP Hyperlipidemia Family History Family History Father CAD (coronary artery disease) Stroke Mother Hypothyroidism Hypercholesterolemia Brother No problems noted. Brother No problems noted. Brother No problems noted. Sister No problems noted. Son No problems noted. Son No problems noted. Family history of problems with anesthesia: No Surgical History Surgical History (Updated 08/29/23 @ 11:15 by Lisa Chino, RIKKI) Hx of colonoscopy History of ankle surgery (~1988) History of Problems with Anesthesia: No Social History Social History (Updated 08/29/23 @ 11:14 by Lisa Chino RN) Housing: House Patient Tobacco Use Status: Former Tobacco user Tobacco use type: Cigarette e-Cigarette/Vaping Use: Never Used Second Hand Smoke Exposure: No Use of substances other than those prescribed or required for medical reasons: No Are you DNR?: No Advance Directives: No Advance Directives Information Provided: Yes service: No Current occupational status: employed 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 Cognitive needs: No Hearing needs: No Vision needs: No Meds Allergies Allergy/AdvReac Type Severity Reaction Status Date / Time No Known Allergies Allergy Verified 08/29/23 11:12 [No Known Allergies*] Home Medications ?Medication ?Instructions ?Recorded ?Confirmed ?Last Taken ?Type 24 Hour Allergy Relief 09/02/23 09/02/23 History Exam Airway Mallampati Class: II TM Dist: >3cm Neck ROM: Full Heart: rrr Lungs: cta Assessment and Plan Assessment Anesthesia Assessment: Anesthesia Plan Discussed Final Anesthetic Review Family History of Problems with Anesthesia: No History of Problems with Anesthesia: No NPO: Yes ASA Class: II Final Preanesthetic Review: No Changes in Pt Med Stat, Meds/Allgs Chart Reviewed and Consent Obtained/Reviewed Patient Risk: Low Procedure Risk: Low Anesthetic Plan Anesthetic Plan: MAC: Disposition: Standard PACU
[2023-09-02 09:25] VITALS: BMI 31.7
[2023-09-02 09:29] VITALS: BP 137/84; PULSE 88; RESP 16; TEMP 36.3; O2SAT 98
[2023-09-02] MEDS: Lactated Ringers 1,000 ML 100 ML IVCONT (09:41)
[2023-09-02 10:47] VITALS: BP 110/74; PULSE 87; RESP 16; TEMP 36.1; O2SAT 96
--- NOTE | 2023-09-02 10:50 | P.BOP_ITS ---
Brief Operative Note Date of Service: 09/02/23 Pre-op diagnosis: Screening, Hx of polyps Post-op diagnosis: other (Colon polyps) Procedure: Colonoscopy to the cecum and TI with hot snare polypectomy x 1, bx/removal of polyp, and cold snare polypectomies x 3 Surgeon: Bob Forbes MD Anesthesia: MAC Was an Volunteer Services Manager used for this Procedure?: No Estimated blood loss (mL): 2.0 Pathology: other (A. Ascending colon polyp B. Transverse colon polyps C. Polyp at 60cm D. Polyp at 20cm) Condition: stable Disposition: PACU
[2023-09-02 11:02] VITALS: BP 115/82; PULSE 79; RESP 16; TEMP 36.3; O2SAT 96
--- NOTE | 2023-09-02 11:06 | OP_ITS ---
DATE OF SERVICE: 09/02/2023 SURGEON: Bob Forbes MD INDICATIONS: The patient presents for evaluation of colorectal cancer screening and personal history of tubular adenoma of the colon. Full consent has been obtained from him for this, including risks of bleeding and perforation. PREOPERATIVE DIAGNOSIS: POSTOPERATIVE DIAGNOSIS: PROCEDURE PERFORMED: Colonoscopy to cecum and terminal ileum with hot snare polypectomy and cold snare polypectomy. ESTIMATED BLOOD LOSS: COMPLICATIONS: ANESTHESIA: Monitored anesthesia care. ASSISTANTS: SPECIMENS: PREOPERATIVE DIAGNOSES: Colorectal cancer screening and personal history of tubular adenoma of the colon. POSTOPERATIVE DIAGNOSES: Colorectal cancer screening, personal history of tubular adenoma of the colon, colon polyps, diverticulosis, and internal hemorrhoids. DESCRIPTION OF PROCEDURE: The patient was placed in the left lateral decubitus position. The digital rectal exam revealed no abnormalities. The Olympus video pediatric colonoscope was then entered into the rectum and advanced easily to the cecum. Once in the cecum, I did identify normal-appearing cecal pouch with appendiceal orifice and a normal-appearing ileocecal valve. The terminal ileum was cannulated and appeared normal. Scope was withdrawn back in the colon. The entire cecum and ileocecal valve appeared normal. The scope was then slowly withdrawn assessing all mucosal surfaces carefully. Preparation was excellent. In the ascending colon, transverse colon, and at 20 cm, were approximately 6 mm polyps, which were all removed by cold snare polypectomy and recovered by suction. All the polypectomy sites appeared to be clean, without any sign of residual polyp nor significant bleeding. Also, in the transverse colon, was a small approximately 3 mm polyp, which was removed by cold biopsy forceps and placed in the same container as the other transverse colon polyp. At 60 cm, was an approximately 10 mm polyp, which was removed by hot snare polypectomy and recovered by suction. The polypectomy site appeared clean, without any sign of residual polyp nor bleeding. I did not visualize any other polyps, colitis, nor angiodysplasia. There was a mild amount of sigmoid diverticulosis. In the rectum, scope was retroflexed, visualizing internal hemorrhoids, but no other pathology. The rectal mucosa appeared normal. The scope was straightened and withdrawn from the patient. He tolerated the procedure well and was returned to the recovery area in stable condition. IMPRESSION: 1. Colon polyps. 2. Diverticulosis. 3. Internal hemorrhoids. PLAN: The results of the pathology will be checked. I would recommend a repeat colonoscopy in 5 years. He was advised not to use any aspirin and NSAIDs for 1 week. MD ERASMO Enriquez/KETTY / [phone]
== END 2023-09-02 11:27 | disposition home or self-care (01) ==
PROVIDERS: PCP Internal Medicine; Visit Provider Internal Medicine
PROC: 0DJD8ZZ Inspection of Lower Intestinal Tract, Via Natural or Artificial Opening Endoscopic (ICD-10-PCS; CPT 45378; principal; 2023-09-02 09:40)
DX: Z12.11 Encounter for screening for malignant neoplasm of colon (principal); D12.2 Benign neoplasm of ascending colon; D12.3 Benign neoplasm of transverse colon; D12.6 Benign neoplasm of colon, unspecified; K57.30 Diverticulosis of large intestine without perforation or abscess without bleeding; K64.8 Other hemorrhoids; Z86.010 Personal history of colon polyps
CPT/HCPCS: 45385; 45380; 88305; J2704

== ENCOUNTER 2023-09-19 13:54 | Outpatient (AMB) | payer BC, SELFPAY ==
--- NOTE | 2023-09-19 13:58 | A.OFFVIS_ITS ---
Vital Signs 09/19/23 14:30 Height 6 ft Weight 231 lb 8 oz BMI 31.4 BP 142/86 H Blood Pressure Location Lt brachial Position Sitting Respiration 18 Pulse 95 Pulse Source Pulse Oximeter Pulse Oximetry (%) 97 Oxygen Delivery Method Room Air Intake Visit Reasons: RECORDS FOLLOW UP Intake Note: Patient comes in for follow up. Reports pain 06/22. Allergies No Known Allergies [No Known Allergies*] Allergy (Verified 08/29/23 11:12) HPI Comments Details: Niranjan is back in my office after we receive documents from the [facility] pain management. He complains on pain in the projection of rhomboid major rhomboid minor muscles on the right side. He reports that this pain in his opinion somehow is connected to pain in the deltoid muscle. Today he did not complain on the pain in the cervical area. The only injection he has documented was trigger point injection ultrasound-guided. I decided to offer this patient trigger point injection, after all the trigger point injection which she had done at [facility] lasted few years. See description of the trigger point injection as below. We agreed that I will schedule him for the evaluation of the results of the injection in 1 month from now. . Prior:? C/O pain in the left side of the neck radiating into the left upper extremity to the triceps and the level of elbow and into the forearm, he also reports sensation of weakness and numbness in the left upper extremity.? He reports that lifting weight with the left upper extremity and holding heavy loads feels like his left hand is about to give up.? He avoids heavy lifting and heavy holding to perform by the left hand or arm.? 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 He reports that 11 years ago in 2010 he was working on a concrete with a sledgehammer and the he started to experience severe pain radiating into the right upper extremity to the level of triceps and into the elbow.? He received some sort of the injection into the back of his upper shoulder and that eliminated that pain sensation for the next 10 years.? However last few months he started to experience pain is above on the left side.? He reports it is almost the mirror sensation of his old pain on the [facility] Medical History (Updated 09/19/23 @ 16:26 by Nghia Cooper MD) Neck pain Psoriasis FAY on CPAP Hyperlipidemia Surgical History (Updated 08/29/23 @ 11:15 by Lisa Chino RN) Hx of colonoscopy History of ankle surgery (~1988) Family History Father CAD (coronary artery disease) Stroke Mother Hypothyroidism Hypercholesterolemia Brother No problems noted. Brother No problems noted. Brother No problems noted. Sister No problems noted. Son No problems noted. Son No problems noted. 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 Cognitive needs: No Hearing needs: No Vision needs: No Review of Systems Const All systems reviewed & are unremarkable except as noted in HPI and below ENT Reports Normal hearing present Neuro Reports Normal hearing present and Denies Sensory deficit (Neuro) Physical Exam Vital Signs: Last Vital Signs Pulse 95 09/19/23 14:30 Resp 18 09/19/23 14:30 BP 142/86 H 09/19/23 14:30 Pulse Ox 97 09/19/23 14:30 Oxygen Delivery Method Room Air 09/19/23 14:30 BMI result Body Mass Index 31.4 Const General: no acute distress Orientation/consciousness: patient oriented x3 Limitations: no limitations Eyes General: appearance normal, both eyes and all related structures Pupils: Equal, round and reactive pupils present EOM: EOMs intact bilaterally Neck Other: Tenderness on palpation in paraspinal spinal region cervical spine. Spurling maneuver is negative on the left, Lhermitte maneuver is negative. Sneezing and coughing, Valsalva maneuvers aggravate his pain. Reports tingling sensation in the left forearm and hand. Chest Chest palpation & inspection: normal inspection of the chest Resp Effort & Inspection: normal respiratory effort, able to speak in complete sentences, normal respiratory pattern, no audible wheezes and no cough Cardio Jugular venous distension: no JVD GI Inspection: Yes normal to inspection Neuro General: patient oriented x3 and gait normal Cranial nerves: Yes Equal, round and reactive pupils present and Yes Normal hearing present Gait exam (Neuro): Normal gait present Motor exam (neuro): 5/5 motor strength present throughout Sensory Exam: No Sensory deficit (Neuro) Extrem General: No pedal edema Psych Speech and movement: Normal speech and movement present Affect: normal affect Attitude: cooperative Thought process: Normal thought process present Thought content: Normal thought content present Insight: Good insight present (Psych) Judgement: Good judgement present (Psych) Assessment & Plan Assessment & Plan (1) Cervicalgia: Code(s): M54.2 - Cervicalgia Category: Medical (2) Spondylosis of cervical spine: Code(s): M47.812 - Spondylosis without myelopathy or radiculopathy, cervical region Category: Medical (3) Cervical radiculopathy: Code(s): M54.12 - Radiculopathy, cervical region Category: Medical (4) Degeneration, intervertebral disc, cervical: Code(s): M50.30 - Other cervical disc degeneration, unspecified cervical region Category: Medical (5) Myofascial pain syndrome: Code(s): M79.18 - Myalgia, other site Category: Medical Plan: Trigger point injection right middle chest. The patient was positioned sitting on examination table. The projection of the rhomboid major rhomboid minor muscles of the patient's right side were prepped with ChloraPrep, the most painful area was located. After that sterilely obtained bupivacaine 0.5% 10 mL mixed with Kenalog 40 mg was injected into the most painful point in fan-like fashion. Upon completion of the injection the needle was removed sterile Band-Aid was applied. The patient tolerated procedure well. Plan We agreed that I will schedule him for the follow-up appointment in 1 month. I will see how well the procedure as above will affect his pain. Coding Level of Care Code Est Pt Level 3 (17828) Procedure Only Diagnoses Cervicalgia M54.2 Spondylosis of cervical spine M47.812 Cervical radiculopathy M54.12 Degeneration, intervertebral disc, cervical M50.30 Myofascial pain syndrome M79.18
[2023-09-19 14:30] VITALS: BP 142/86; PULSE 95; RESP 18; O2SAT 97; BMI 31.4
== END 2023-09-19 14:27 | disposition home or self-care (01) ==
PROVIDERS: PCP Internal Medicine; Visit Provider Anesthesiology
DX: M54.2 Cervicalgia (principal); M47.812 Spondylosis without myelopathy or radiculopathy, cervical region; M54.12 Radiculopathy, cervical region; M50.30 Other cervical disc degeneration, unspecified cervical region; M79.18 Myalgia, other site
CPT/HCPCS: 20552; 99213

== ENCOUNTER → 2023-09-19 13:54 | Outpatient (BNVA) | payer BC, SELFPAY | PROVIDERS: PCP Internal Medicine; Visit Provider Anesthesiology | DX: M50.30 Other cervical disc degeneration, unspecified cervical region (principal); M47.812 Spondylosis without myelopathy or radiculopathy, cervical region; M54.12 Radiculopathy, cervical region; M79.18 Myalgia, other site | CPT/HCPCS: 20552; J0665; J3301 ==

== ENCOUNTER 2023-10-23 08:40 | Outpatient (REF) | payer BC, SELFPAY ==
--- NOTE | ~2023-10-23 | XR_ITS ---
EXAMINATION: XR SHOULDER, RIGHT CLINICAL INFORMATION: Primary osteoarthritis right shoulder. COMPARISON: None available. TECHNIQUE: AP external rotation, Grashey, scapular Y, and axillary views of the right shoulder. FINDINGS: Mild degenerative changes in the acromioclavicular joint with joint space narrowing and hypertrophic change. Degenerative changes in the imaged upper thoracic spine. Glenohumeral alignment preserved. Amorphous soft tissue calcification adjacent to the proximal shaft of the humerus. XR/XR shoulder RT min 2V IMPRESSION: 1. Mild degenerative changes in the acromioclavicular joint. 2. Amorphous soft tissue calcification adjacent to the proximal shaft of the humerus.
== END 2023-10-23 08:41 | disposition home or self-care (01) ==
LOC: HO.XRAY 08:40
PROVIDERS: PCP Internal Medicine; Visit Provider Anesthesiology
DX: M19.011 Primary osteoarthritis, right shoulder (principal)
CPT/HCPCS: 73030

== ENCOUNTER 2023-10-23 08:40 | Outpatient (AMB) | payer BC, SELFPAY ==
--- NOTE | 2023-10-23 08:56 | A.OFFVIS_ITS ---
Vital Signs 10/23/23 09:16 Height 6 ft Weight 225 lb BMI 30.5 BP 137/82 Blood Pressure Location Lt brachial Position Sitting Respiration 17 Pulse 85 Pulse Source Pulse Oximeter Pulse Oximetry (%) 94 Oxygen Delivery Method Room Air Intake Visit Reasons: 1 Month Follow Up Intake Note: Patient comes in for 1 month follow up. Reports pain 4/10. Allergies No Known Allergies [No Known Allergies*] Allergy (Verified 10/23/23 09:17) HPI Comments Details: Niranjan is back in my office after therapeutic trigger point injection. He reports very minimal pain improvement after the injection. He reports his pain today 4/10. However he reports pain is greatly drug aggravated with motions in the right shoulder. He is unable to lift the arm above the shoulder line. He is also unable to lift his arm forward against resistance applied to the fore arm. This all points out to possible arthritic changes versus rotator cuff changes. We decided that I will send him for the x-ray of the right shoulder today. When the results are read he will give us a call to schedule an appointment. We performed trigger point injections for him as it was documented in his [facility] pain management documents and the results are not encouraging. Aerobic exercise low impact versus high impact was discussed today. Anaerobic exercise such as heavy lifting was discussed today. Light weight lifting which is not inflicting the pain would be low-impact aerobic exercise. Stationary bicycle elliptical machine and swimming would be low-impact exercises however walking and treadmill will be high impact aerobic exercise. This was discouraged. Anaerobic exercise such as heavy weight lifting was discouraged. Nature of the MRI and future needs for MRI were explained to the patient. . Prior:? C/O pain in the left side of the neck radiating into the left upper extremity to the triceps and the level of elbow and into the forearm, he also reports sensation of weakness and numbness in the left upper extremity.? He reports that lifting weight with the left upper extremity and holding heavy loads feels like his left hand is about to give up.? He avoids heavy lifting and heavy holding to perform by the left hand or arm.? 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 He reports that 11 years ago in 2010 he was working on a concrete with a sledgehammer and the he started to experience severe pain radiating into the right upper extremity to the level of triceps and into the elbow.? He received some sort of the injection into the back of his upper shoulder and that eliminated that pain sensation for the next 10 years.? However last few months he started to experience pain is above on the left side.? He reports it is almost the mirror sensation of his old pain on the [facility] Medical History (Updated 10/23/23 @ 09:29 by Nghia Cooper MD) Neck pain Psoriasis FAY on CPAP Hyperlipidemia Surgical History (Updated 08/29/23 @ 11:15 by Lisa Chino, RIKKI) Hx of colonoscopy History of ankle surgery (~1988) Family History Father CAD (coronary artery disease) Stroke Mother Hypothyroidism Hypercholesterolemia Brother No problems noted. Brother No problems noted. Brother No problems noted. Sister No problems noted. Son No problems noted. Son No problems noted. 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 Cognitive needs: No Hearing needs: No Vision needs: No Review of Systems Const All systems reviewed & are unremarkable except as noted in HPI and below ENT Reports Normal hearing present Neuro Reports Normal hearing present and Denies Sensory deficit (Neuro) Physical Exam Vital Signs: Last Vital Signs Pulse 85 10/23/23 09:16 Resp 17 10/23/23 09:16 BP 137/82 10/23/23 09:16 Pulse Ox 94 10/23/23 09:16 Oxygen Delivery Method Room Air 10/23/23 09:16 BMI result Body Mass Index 30.5 Const General: no acute distress Orientation/consciousness: patient oriented x3 Limitations: no limitations Eyes General: appearance normal, both eyes and all related structures Pupils: Equal, round and reactive pupils present EOM: EOMs intact bilaterally Neck Other: Tenderness on palpation in paraspinal spinal region cervical spine. Spurling maneuver is negative on the left, Lhermitte maneuver is negative. Sneezing and coughing, Valsalva maneuvers aggravate his pain. Reports tingling sensation in the left forearm and hand. Chest Chest palpation & inspection: normal inspection of the chest Resp Effort & Inspection: normal respiratory effort, able to speak in complete sentences, normal respiratory pattern, no audible wheezes and no cough Cardio Jugular venous distension: no JVD GI Inspection: Yes normal to inspection Neuro General: patient oriented x3 and gait normal Cranial nerves: Yes Equal, round and reactive pupils present and Yes Normal hearing present Gait exam (Neuro): Normal gait present Motor exam (neuro): 5/5 motor strength present throughout Sensory Exam: No Sensory deficit (Neuro) Extrem General: No pedal edema Psych Speech and movement: Normal speech and movement present Affect: normal affect Attitude: cooperative Thought process: Normal thought process present Thought content: Normal thought content present Insight: Good insight present (Psych) Judgement: Good judgement present (Psych) Assessment & Plan Assessment & Plan (1) Arthritis of right shoulder region: Code(s): M19.011 - Primary osteoarthritis, right shoulder Category: Medical (2) Cervicalgia: Code(s): M54.2 - Cervicalgia Category: Medical (3) Spondylosis of cervical spine: Code(s): M47.812 - Spondylosis without myelopathy or radiculopathy, cervical region Category: Medical (4) Cervical radiculopathy: Code(s): M54.12 - Radiculopathy, cervical region Category: Medical (5) Degeneration, intervertebral disc, cervical: Code(s): M50.30 - Other cervical disc degeneration, unspecified cervical region Category: Medical (6) Myofascial pain syndrome: Code(s): M79.18 - Myalgia, other site Category: Medical Plan: Trigger point injection resulted in not significant pain relief to consider chronic application of this injections. We decided to perform shoulder x-ray because arthritis versus RCT could be considered based on today history and physical. Plan Next appointment needs to be scheduled after the x-ray he went day will be read by radiologist. Orders: Orders XR shoulder RT min 2V Today M19.011 - Primary osteoarthritis, right shoulder Patient Instructions: I here by testify that I spent 35 minutes in conversation with this patient as well as planning his care and organizing this note. Coding Level of Care Code Est Pt Level 4 (04559) Diagnoses Arthritis of right shoulder region M19.011 Cervicalgia M54.2 Spondylosis of cervical spine M47.812 Cervical radiculopathy M54.12 Degeneration, intervertebral disc, cervical M50.30 Myofascial pain syndrome M79.18
[2023-10-23 09:16] VITALS: BP 137/82; PULSE 85; RESP 17; O2SAT 94; BMI 30.5
== END 2023-10-23 09:29 | disposition home or self-care (01) ==
PROVIDERS: PCP Internal Medicine; Visit Provider Anesthesiology
DX: M19.011 Primary osteoarthritis, right shoulder (principal); M54.2 Cervicalgia; M47.812 Spondylosis without myelopathy or radiculopathy, cervical region; M54.12 Radiculopathy, cervical region; M50.30 Other cervical disc degeneration, unspecified cervical region; M79.18 Myalgia, other site
CPT/HCPCS: 99213; 99214

== ENCOUNTER 2023-12-04 09:37 | Outpatient (REF) | payer BC, SELFPAY ==
[2023-12-04 12:42] LABS: Cholesterol 192 mg/dL (<200); HDL Cholesterol 39 mg/dL (>40); LDL Cholesterol Calculated 107 mg/dL (<100); Triglycerides 231 mg/dL (<150)
== END 2023-12-04 09:38 | disposition home or self-care (01) ==
LOC: HO.LAB 09:37
PROVIDERS: PCP Internal Medicine; Visit Provider Internal Medicine
DX: Z13.220 Encounter for screening for lipoid disorders (principal)
CPT/HCPCS: 36415; 80061

== ENCOUNTER 2023-12-10 11:38 | Outpatient (AMB) | payer BC, SELFPAY ==
--- NOTE | 2023-12-10 11:46 | A.OFFPC_ITS ---
Vital Signs 12/10/23 11:47 Height 6 ft Weight 225 lb BMI 30.5 BP 124/72 Blood Pressure Location Lt brachial Position Sitting Pulse 78 Pulse Source Pulse Oximeter Pulse Oximetry (%) 97 Oxygen Delivery Method Room Air Intake Visit Reasons: 3mth f/u Applique Cutter Required: No Accompanied by: Self / Same As Patient Allergies No Known Allergies [No Known Allergies*] Allergy (Verified 12/10/23 11:48) Medication List - Last Reconciled 12/10/23 by Joe Reyes MD [24 Hour Allergy Relief ] atorvastatin 40 mg PO QPM cyclobenzaprine 10 mg PO TID PRN fenofibrate 160 mg PO DAILY Tobacco use date assessed: 08/16/23 Dental Screening Dental Screen Date: 05/03/23 HPI 3mth f/u HPI Details hyperlipidemia on rx; doing well and compliant [facility] Medical History (Updated 11/20/23 @ 16:19 by Nghia Cooper MD) Neck pain Psoriasis FAY on CPAP Hyperlipidemia Surgical History (Updated 08/29/23 @ 11:15 by Lisa Chino RN) Hx of colonoscopy History of ankle surgery (~1988) Family History Father CAD (coronary artery disease) Stroke Mother Hypothyroidism Hypercholesterolemia Brother No problems noted. Brother No problems noted. Brother No problems noted. Sister No problems noted. Son No problems noted. Son No problems noted. 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 1. Little interest or pleasure in doing things: not at all 2. Feeling down, depressed, or hopeless: not at all 3. Trouble falling or staying asleep, or sleeping too much: not at all 4. Feeling tired or having little energy: not at all 5. Poor appetite or overeating: not at all 6. Feeling bad about yourself - or that you are a failure or have let yourself or your family down: not at all 7. Trouble concentrating on things, such as reading the newspaper or watching television: not at all 8. Moving or speaking so slowly that other people could have noticed. Or the opposite - being so fidgety or restless that you have been moving around a lot more than usual: not at all 9. Thoughts that you would be better off or of hurting yourself in some way: not at all Total score: 0 Depression Screening Interpretation: Negative Depression Screening Done: Yes 25879 - PHQ-9 Billing: Yes Source: Developed by Drs. Bob Valentine, Beverly Johnson, Samuel Estrada and colleagues, with an educational peewee from [employer]. Thrive Questionnaire Date Thrive assessed: 05/03/23 AUDIT C Alcohol Use Questionnaire (AUDIT-C) 1. How often do you have a drink containing alcohol?: 2-3 times a week 2. How many drinks containing alcohol do you have on a typical day when you are drinking?: 1 or 2 Total Score: 3 Score Reviewed/Action Taken: Yes KENROY-7 AMB Questionnaire KENROY-7 Date KENROY - 7 assessed: 05/03/23 Source: Developed by Drs. Bob Valentine, Beverly Johnson, Samuel Estrada and colleagues, with an educational peewee from [employer]. Review of Systems Const Denies chills, Denies headache(s) and Denies weight loss ENT Denies headache(s) Card Denies chest pain, Denies syncope, Denies irregular heart rhythm and Denies dyspnea Resp Denies chest congestion, Denies cough and Denies dyspnea GI Denies abdominal pain, Denies change in stool character, Denies nausea and Denies vomiting Musc Denies deformity and Denies joint swelling Neuro Denies syncope and Denies headache(s) Physical exam (Primary Care) Vital Signs: Last Vital Signs Pulse 78 12/10/23 11:47 BP 124/72 12/10/23 11:47 Pulse Ox 97 12/10/23 11:47 Oxygen Delivery Method Room Air 12/10/23 11:47 BMI result Body Mass Index 30.5 Tobacco/Smoking Status: Tobacco use Status Tobacco use date assessed 08/16/23 12/10/23 11:46 Patient Tobacco Use Status Former Tobacco user 12/10/23 11:46 Tobacco use type Cigarette 12/10/23 11:46 e-Cigarette/Vaping Use Never Used 12/10/23 11:46 PHQ-9: PHQ-9 Score PHQ-9: Total score 0 12/10/23 11:50 Depression Screening Interpretation: Negative Thrive Assessment: Date of Thrive Assessment Date Thrive assessed 05/03/23 12/10/23 11:46 Const General: cooperative, comfortable, no acute distress and alert Neck Neck: Yes no lymphadenopathy Thyroid: Thyroid normal Resp Effort & Inspection: normal respiratory effort Auscultation: clear to auscultation bilaterally Percussion: percussion normal Cardio Jugular venous distension: no JVD Palpation: normal PMI Rate: regular rate Rhythm: regular rhythm Heart sounds: S1 normal heart sound present and S2 normal heart sound present GI Inspection: Yes normal to inspection Palpation (GI): No hepatosplenomegaly present Skin General skin exam: no rashes or lesions noted Extrem General: Yes no clubbing, cyanosis or edema Assessment and Plan Assessment & Plan (1) Hyperlipidemia: Code(s): E78.5 - Hyperlipidemia, unspecified Plan: stable; same rx Orders: Orders Lipid Panel Today Z13.220 - Encounter for screening for lipoid disorders MR shoulder RT wo con 11/20/23 M75.100 - Unspecified rotator cuff tear or rupture of unspecified shoulder, not specified as traumatic Coding Level of Care Code Est Pt Level 3 (24298) Diagnoses Hyperlipidemia E78.5
[2023-12-10 11:47] VITALS: BP 124/72; PULSE 78; O2SAT 97; BMI 30.5
== END 2023-12-10 12:10 | disposition home or self-care (01) ==
PROVIDERS: PCP Internal Medicine; Visit Provider Internal Medicine
DX: E78.5 Hyperlipidemia, unspecified (principal)
CPT/HCPCS: 99213

== ENCOUNTER 2023-12-19 19:24 | Outpatient (REF) | payer BC, SELFPAY ==
--- NOTE | ~2023-12-19 | MR_ITS ---
EXAMINATION: MR SHOULDER WITHOUT CONTRAST, RIGHT CLINICAL INFORMATION: Suspected rotator cuff tear 6 months to one year ago. No injury. Right shoulder pain. COMPARISON: Radiograph dated 10/23/2023. TECHNIQUE: MRI of the shoulder without contrast was performed on a high-field scanner. FINDINGS: ROTATOR CUFF: A partial-thickness bursal sided tear of the supraspinatus tendon measures 1.5 cm AP and involves approximately one-half of the tendon thickness, sparing the deep fibers. The torn bursal surface fibers are minimally retracted (2 to 3 mm). There is moderate associated supraspinatus and infraspinatus tendinosis. Infraspinatus, teres minor, and subscapularis are intact.. Trace fluid in the subacromial subdeltoid bursa. No muscle atrophy or fatty infiltration. BICEPS: Normal. CORACOACROMIAL ARCH: The undersurface of the acromion is curved with no subacromial spur. Moderate acromioclavicular osteoarthritis. Iyndd-lj-skfhavke amount of fluid in the subacromial subdeltoid bursa. LABRUM/CAPSULE: A labral tear propagates from the anterosuperior 1 o'clock position to the superior labrum and posterior labrum to the posterior inferior 6 o'clock position. The tear is most notable posterosuperiorly where a cleft of delaminating fluid undercuts the labrum between the 11 o'clock position and 9 o'clock position. Joint capsule is unremarkable. GLENOHUMERAL JOINT/MARROW: Small glenoid osteophytes. No fracture or malalignment. Minimal chondral thinning along the glenoid rim posteriorly and at the humeral head medially. No fracture or malalignment. There is mild cortical irregularity and subcortical edema at the greater tuberosity deep to the site of reticular cuff tendinopathy. MR/MR shoulder RT wo con IMPRESSION: 1. A 1.5 cm (AP) partial-thickness bursal sided tear of the supraspinatus tendon with moderate associated tendinosis. 2. Moderate acromioclavicular and minimal glenohumeral osteoarthritis. 3. Nondisplaced tear of the superior and posterior labrum. 4. Mild subacromial subdeltoid bursitis. Electronically signed by: Corby Allred MD 12/20/2023 07:59 AM EDT RP
== END 2023-12-19 19:25 | disposition home or self-care (01) ==
LOC: HO.MRI 19:24
PROVIDERS: PCP Internal Medicine; Visit Provider Anesthesiology
DX: M75.100 Unspecified rotator cuff tear or rupture of unspecified shoulder, not specified as traumatic (principal)
CPT/HCPCS: 73221

== ENCOUNTER 2024-01-03 10:50 | Outpatient (AMB) | payer BC, SELFPAY ==
--- NOTE | 2024-01-03 11:11 | A.OFFVIS_ITS ---
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 Patient reports his right shoulder pain has been present for the last couple of years. He has tried and failed PT about 2 years ago as well as pain management where a steroid injection was given with no relief. He was taking gabapentin for about year that had just massed his pain. Limited ROM. Denies numbness or tingling. 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 He currently states he has pain and limited ROM in his shoulder that is aggravated with heavy lifting. He has tried and failed physical therapy about 2 years ago and he also had a cortisone injection at pain management which did not provide him any relief. He denies any numbness or tingling. He was taking gabapentin for about an year that just amassed his pain. [facility] Medical History (Updated 01/03/24 @ 12:50 by Toshia Mcconnell PA-C) Neck pain Psoriasis FAY on CPAP Hyperlipidemia Surgical History Hx of colonoscopy History of ankle surgery (~1988) Family History Father CAD (coronary artery disease) Stroke Mother Hypothyroidism Hypercholesterolemia Brother No problems noted. Brother No problems noted. Brother No problems noted. Sister No problems noted. Son No problems noted. Son No problems noted. 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 Cognitive needs: No Hearing needs: No Vision needs: No Review of Systems Const All systems reviewed & are unremarkable except as noted in HPI and below Physical Exam Const General: cooperative, healthy appearing, comfortable, no acute distress, well developed and alert Orientation/consciousness: patient oriented x3 HEENT Head: Yes normal to inspection, Yes normocephalic and Yes atraumatic Eyes General: appearance normal, both eyes and all related structures Resp Effort & Inspection: normal respiratory effort and able to speak in complete sentences Cardio Rate: regular rate Peripheral pulses: Peripheral pulses 2+ throughout GI Palpation (GI): Soft to palpation Skin Lesions: no lesions Rashes: no rashes Neuro General: patient oriented x3 Extrem Other: Right shoulder: Normal to inspection. Tenderness over the bicipital groove and along the deltoid region of the shoulder. Forward flexion to 175, external rotation to 90, internal rotation to S1. 5/5 RTC strength. Negative Liu and cross body abduction. NVI. Results Reviewed Results Reviewed: MR shoulder RT wo con IMPRESSION: 1. A 1.5 cm (AP) partial-thickness bursal sided tear of the supraspinatus tendon with moderate associated tendinosis. 2. Moderate acromioclavicular and minimal glenohumeral osteoarthritis. 3. Nondisplaced tear of the superior and posterior labrum. 4. Mild subacromial subdeltoid bursitis. Assessment & Plan Assessment & Plan (1) Rotator cuff tear: Code(s): M75.100 - Unspecified rotator cuff tear or rupture of unspecified shoulder, not specified as traumatic Category: Medical Qualifiers: Laterality: right Rotator cuff tear extent: unspecified tear extent Rotator cuff tear trauma status: nontraumatic Qualified Code(s): M75.101 - Unspecified rotator cuff tear or rupture of right shoulder, not specified as traumatic Plan This is a 58 yo active M with a full thickness RTC tear. I recommend surgical fixation. I explained the procedure in detail along with the length of recovery and rehab course. I explained the risk, benefits and alternatives. Risk including, but not limited to infection, blood clots, bleeding, ongoing pain and stiffness. I explained the use of the sling post op ie: 6 weeks. Discussed the importance of PT post op and performing pendulum exercises immediately after surgery. I discussed the risks benefits and alternatives including but not limited to the risk of pain, infection, stiffness, need for further surgery as well as potential medical complications such as blood clots, pulmonary embolism and cardiac complications. Patient Instructions: Scribed for Toshia Mcconnell PA-C, by Krystian Trotter medical office technician, on 01/03/2024 at 11:00 AM EST.? I, Toshia Mcconnell PA-C, have personally reviewed and agree with the information entered by the scribe. Coding Level of Care Code New Pt Level 4 (83853) Complex EM visit Add On G2211 Diagnoses Nontraumatic tear of right rotator cuff, unspecified tear extent M75.101 Laterality: right Rotator cuff tear extent: unspecified tear extent Rotator cuff tear trauma status: nontraumatic
== END 2024-01-03 11:35 | disposition home or self-care (01) ==
PROVIDERS: PCP Internal Medicine; Visit Provider Physician Assistant
DX: M75.101 Unspecified rotator cuff tear or rupture of right shoulder, not specified as traumatic (principal)
CPT/HCPCS: 99204

== ENCOUNTER → 2024-01-03 10:50 | Outpatient (BNVA) | payer BC, SELFPAY | PROVIDERS: PCP Internal Medicine; Visit Provider Physician Assistant ==

== ENCOUNTER 2024-02-05 05:57 | Day surgery (SDC) | payer BC, SELFPAY ==
[2024-02-03 09:20] VITALS: BMI 30.5
--- NOTE | 2024-02-04 09:58 | P.CONAN_ITS ---
Documented by User: Jessika Aguero NP 02/04/24 09:58 HPI - Anesthesia Eval Consult details Narrative: 58yo M for Right Arthroscopic Rotator Cuff Repair PMFSH Active Problems Active Problems: All Active Problems Rotator cuff tear (Acute) Arthritis of right shoulder region (Acute) Myofascial pain syndrome (Acute) Psoriasis (Acute) Degeneration, intervertebral disc, cervical (Acute) Spondylosis of cervical spine (Acute) Cervicalgia (Acute) Cervical radiculopathy (Acute) Sciatica (Acute) Hyperlipidemia (Acute) Past Medical History Medical History Neck pain Psoriasis FAY on CPAP Hyperlipidemia Family History Family History Father CAD (coronary artery disease) Stroke Mother Hypothyroidism Hypercholesterolemia Brother No problems noted. Brother No problems noted. Brother No problems noted. Sister No problems noted. Son No problems noted. Son No problems noted. 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 Cognitive needs: No Hearing needs: No Vision needs: No Meds Allergies Allergy/AdvReac Type Severity Reaction Status Date / Time No Known Allergies Allergy Verified 02/05/24 06:26 [No Known Allergies*] Home Medications ?Medication ?Instructions ?Recorded ?Confirmed ?Last Taken ?Type 24 Hour Allergy Relief 09/02/23 12/10/23 09/02/23 History apremilast 30 mg tablet (Otezla) 30 mg PO BID 01/03/24 02/05/24 Unknown History Exam Height,Weight and Vital Signs: Height 6 ft Weight 102.058 kg Assessment and Plan Assessment Anesthesia Assessment: Chart Reviewed Final Anesthetic Review Family History of Problems with Anesthesia: No History of Problems with Anesthesia: No Documented by User: Anitra Boyd MD 02/05/24 07:28 PMFSH Past Medical History Medical History Neck pain Psoriasis FAY on CPAP Hyperlipidemia Family History Family History Father CAD (coronary artery disease) Stroke Mother Hypothyroidism Hypercholesterolemia Brother No problems noted. Brother No problems noted. Brother No problems noted. Sister No problems noted. Son No problems noted. Son No problems noted. 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 Cognitive needs: No Hearing needs: No Vision needs: No Meds Allergies Allergy/AdvReac Type Severity Reaction Status Date / Time No Known Allergies Allergy Verified 02/05/24 06:26 [No Known Allergies*] Home Medications ?Medication ?Instructions ?Recorded ?Confirmed ?Last Taken ?Type 24 Hour Allergy Relief 09/02/23 12/10/23 09/02/23 History apremilast 30 mg tablet (Otezla) 30 mg PO BID 01/03/24 02/05/24 Unknown History Exam Airway Mallampati Class: III TM Dist: >3cm Neck ROM: Limited Loose/Missing/Broken Teeth: No Heart: RRR Lungs: CTA Assessment and Plan Assessment Anesthesia Assessment: Anesthesia Plan Discussed Final Anesthetic Review NPO: Yes ASA Class: III Final Preanesthetic Review: Meds/Allgs Chart Reviewed, Consent Obtained/Reviewed and Anes Risks/Benef Reviewed Patient Risk: Intermediate Procedure Risk: Intermediate Anesthetic Plan Anesthetic Plan: GA Disposition: Standard PACU
[2024-02-05 06:27] VITALS: BMI 30.4
[2024-02-05 06:28] VITALS: BP 146/95; PULSE 91; RESP 16; TEMP 36.5; O2SAT 96
[2024-02-05] MEDS: Lactated Ringers 1,000 ML 100 ML IVCONT (06:48)
--- NOTE | 2024-02-05 07:36 | MHC.SHP ---
Pre-Procedural Eval Section A - 24 Hr Update-Section A only Date of Service: 02/05/24 The patient is an INPATIENT: No Changes since office visit: No Cold of Flu in the past 2 weeks, No New Medical Problems, No Changes in Medication and No Patient answered all questions The patient has been examined within 24 hours of the surgical procedure. The History & Physical has been completed within 30 days and I have reviewed it.: Yes Section B - Complete if H&P > 30 days Chief Complaint: Complete rotator cuff tear or rupture of R shoulde Allergies: Allergies Allergy/AdvReac Type Severity Reaction Status Date / Time No Known Allergies Allergy Verified 02/05/24 06:26 [No Known Allergies*] Plan I have reviewed the history and physical and performed a pertinent physical examination on my patient. No changes have occurred unless specified. Time Spent With Patient Time: Total time managing care of this patient today ____ minutes.
--- NOTE | 2024-02-05 08:57 | P.BOP_ITS ---
Brief Operative Note Date of Service: 02/05/24 Pre-op diagnosis: Right RTC tear Post-op diagnosis: other (1) R RTC tear 2) R SLAP tear 3) R ACJ OA) Procedure: RTC repair, biceps tenotomy, labral debridment, DCE,SAD Implants: Arenas and Nephew double loaded 4.75 Helacoil and 2 5.0 Knotless Helacoil Surgeon: Andre Gutierrez MD Anesthesia: GETA and regional Was an Instructor Ground Services used for this Procedure?: Yes Instructor Ground Services: Gaby Vidal Estimated blood loss (mL): 20 IV fluids (mL): 1,000 Pathology: none sent Condition: stable Disposition: PACU
[2024-02-05 09:16] VITALS: BP 129/73; PULSE 92; RESP 16; TEMP 36.6; O2SAT 94
[2024-02-05 09:20] VITALS: BP 120/73; PULSE 88; RESP 20; O2SAT 94
[2024-02-05 09:25] VITALS: BP 120/73; PULSE 87; RESP 20; O2SAT 95
[2024-02-05 09:30] VITALS: BP 132/74; PULSE 85; RESP 20; O2SAT 94
[2024-02-05 09:45] VITALS: BP 137/83; PULSE 88; RESP 20; TEMP 36.8; O2SAT 95
--- NOTE | 2024-02-14 16:14 | P.OP_ITS ---
Operative Note Operative Note Date of Service: 02/05/24 Narrative: Date of Service: 02/05/24 Pre-op diagnosis: Right RTC tear Post-op diagnosis: other (1) R RTC tear 2) R SLAP tear 3) R ACJ OA) Procedure: RTC repair, biceps tenotomy, labral debridment, DCE,SAD Implants: Arenas and Nephew double loaded 4.75 Helacoil and 2 5.0 Knotless Helacoil Surgeon: Andre Gutierrez MD Anesthesia: GETA and regional Was an Fiberglass Boat Finisher used for this Procedure?: Yes Fiberglass Boat Finisher: Gaby Vidal Estimated blood loss (mL): 20 IV fluids (mL): 1,000 Pathology: none sent Condition: stable Disposition: PACU Procedure in detail: Patient was brought to the operating room and placed the the beach chair po sition. All bony prominences were well padded and the limb was prepped and draped in standard sterile fashion. A time out was called to identify proper site, proper procedure and proper surgeon. IV antibiotics per weight were administered. I began by making a posterolateral stab incision with a 15 blade. A blunt trochar was placed into the glenohumeral joint and I insufflated the joint with saline and a 30 degree arthroscope was placed. I established an outside- in anterior portal just distal to the biceps tendon. I then began my inspection of the glenohumeral joint. There was a large degenerative SLAP tear at the biceps anchor ( Type 2). There were minimal cartilage changes at the inferior glenoid without humeral head changes. There was a full thickness undersurface RTC tear. The subcapularis was intact. I debrided the loose cartilage of the glenoid and the degenerative labral tearing and performed a biceps tenotomy. I then removed the trochar and entered the subacromial space. A direct lateral portal was then established and I performed a bursectomy. The cuff was then examined. There was a full thickness tear of the supraspinatus without retraction. The tear was mobile. I placed one double loaded medial row anchor after using a tap just adjacent to the articular cartilage and then brought the suture limbs (4) through the medial cuff. I then debrided the bare area down to bleeding bone and, using a cross bridge configuration, brought 2 limbs to each of two lateral 5.0 anchors. This re-approximated the cuff anatomy anatomically. I then examined the AC joint. The distal clavicle was arthritic and I used a full-radius shaver to resect 5 mm of the distal clavicle. Once I was satisfied with the extent of resection I performed a 5 mm anterior subacromial decompression using the same bur. Once I was satisfied the final images were captured and I removed all instrumentation. Portals were closed with nylon. Patient was placed in an abduction sling, extubated and brought to the recovery room in stable condition. There were no known complications.
== END 2024-02-05 10:21 | disposition home or self-care (01) ==
LOC: HO.SSS 05:58
PROVIDERS: PCP Internal Medicine; Visit Provider Orthopaedic Surgery
PROC: (CPT 29827; principal; 2024-02-05 07:30)
DX: M75.121 Complete rotator cuff tear or rupture of right shoulder, not specified as traumatic (principal); S43.431A Superior glenoid labrum lesion of right shoulder, initial encounter; M19.011 Primary osteoarthritis, right shoulder; M25.611 Stiffness of right shoulder, not elsewhere classified; X58.XXXA Exposure to other specified factors, initial encounter; Y93.9 Activity, unspecified; Y92.9 Unspecified place or not applicable; Y99.8 Other external cause status; M54.2 Cervicalgia; G47.33 Obstructive sleep apnea (adult) (pediatric); L40.9 Psoriasis, unspecified; E78.5 Hyperlipidemia, unspecified; Z79.899 Other long term (current) drug therapy; Z99.89 Dependence on other enabling machines and devices; Z98.890 Other specified postprocedural states; Z87.891 Personal history of nicotine dependence
CPT/HCPCS: 29827; 29828; 29824; 29826; C1713; J0131; J0171; J0665; J0690; J1100; J2003; J2250; J2405; J2704; J3010

== ENCOUNTER → 2024-02-05 05:57 | Outpatient (BNV) | payer BC, SELFPAY | PROVIDERS: PCP Internal Medicine; Visit Provider Orthopaedic Surgery | DX: M75.121 Complete rotator cuff tear or rupture of right shoulder, not specified as traumatic (principal); S43.431A Superior glenoid labrum lesion of right shoulder, initial encounter; M19.011 Primary osteoarthritis, right shoulder | CPT/HCPCS: 29824; 29827 ==

== ENCOUNTER 2024-02-13 14:38 | Outpatient (AMB) | payer BC, SELFPAY ==
--- NOTE | 2024-02-13 14:52 | A.OFFVIS_ITS ---
Intake Visit Reasons: PO RT RTC 02/05/24 NE Intake Note: Niarnjan is a 58 year old male who presents today for a post op appointment s/p RT RTC 02/05/24 NE. Patient reports he is doing well. He states having a reaction to the surgical tape on his skin. Allergies No Known Allergies [No Known Allergies*] Allergy (Verified 02/05/24 06:26) HPI HPI PO RT RTC 02/05/24 NE: Details: 58-year-old right hand dominant male who presents in the office today 8 days status post right RTC repair, biceps tenotomy, labral debridement, DCE and SAD which was performed on 02/05/[address] Gutierrez. While in the office today, the patient reports he is doing well. He mentioned experiencing a skin reaction to the surgical tape. PFSH Medical History Neck pain Psoriasis FAY on CPAP Hyperlipidemia Surgical History Hx of colonoscopy History of ankle surgery (~1988) Family History Father CAD (coronary artery disease) Stroke Mother Hypothyroidism Hypercholesterolemia Brother No problems noted. Brother No problems noted. Brother No problems noted. Sister No problems noted. Son No problems noted. Son No problems noted. 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 He has a small area on the anterior aspect of the chest from a skin tear from taking off a foam tape. No evidence of infection. Forward flexion and abduction to 45 degrees. External rotation to neutral. NVI. Assessment & Plan Assessment & Plan (1) Status post right rotator cuff repair: Code(s): Z98.890 - Other specified postprocedural states Category: Surgical Plan Mr. Ureña is a 58-year-old right hand dominant male who presents in the office today 8 days status post right RTC repair, biceps tenotomy, labral debridement, DCE and SAD which was performed on 02/05/[address] Gutierrez. While in the office today, the patient reports he is doing well. He mentioned experiencing a skin reaction to the surgical tape. Sutures were removed, and steri-strips were applied. He will remain in the sling for 6 weeks post-op. A STAT referral to physical therapy has been made in the office today. We will provide him with exercises that he can perform at home. Follow-up will be in [address] Gutierrez, or sooner if needed. Orders: Orders PT Evaluation and Treatment 02/13/24 M75.101 - Unspecified rotator cuff tear or rupture of right shoulder, not specified as traumatic Patient Instructions: Scribed by Mickie Hickey medical records library professor, for Gaby Vidal PA-C on 02/13/24 at 3:30 am EST. Coding Level of Care Code Global (55687) Diagnoses Status post right rotator cuff repair Z98.890
== END 2024-02-13 15:33 | disposition home or self-care (01) ==
LOC: HO.HOS 14:38
PROVIDERS: PCP Internal Medicine; Visit Provider Physician Assistant
DX: Z98.890 Other specified postprocedural states (principal)
CPT/HCPCS: 99024

== ENCOUNTER → 2024-02-13 14:38 | Outpatient (BNVA) | payer BC, SELFPAY | PROVIDERS: PCP Internal Medicine; Visit Provider Physician Assistant ==

== ENCOUNTER 2024-03-16 12:09 | Outpatient (AMB) | payer BC, SELFPAY ==
--- NOTE | 2024-03-16 12:23 | A.OFFVIS_ITS ---
Intake Visit Reasons: PO RT RTC 02/05/24 NE Intake Note: Niranjan is a 58 year old right hand dominant male who presents today for a post operative appointment s/p Right RTC repair, biceps tenotomy, labral debridement, DCE and SAD which was performed on 02/05/[address] Gutierrez. Patient reports that he is doing very well, he would like to begin more aggressive physical therapy. Allergies No Known Allergies [No Known Allergies*] Allergy (Verified 02/05/24 06:26) HPI HPI PO RT RTC 02/05/24 NE: Details: Niranjan is a 58 year old right hand dominant male who presents today for a post operative appointment s/p Right RTC repair, biceps tenotomy, labral debridement, DCE and SAD which was performed on 02/05/[address] Gutierrez. Patient reports that he is doing very well, he would like to begin more aggressive physical therapy. PFSH Medical History Neck pain Psoriasis FAY on CPAP Hyperlipidemia Surgical History Hx of colonoscopy History of ankle surgery (~1988) Family History Father CAD (coronary artery disease) Stroke Mother Hypothyroidism Hypercholesterolemia Brother No problems noted. Brother No problems noted. Brother No problems noted. Sister No problems noted. Son No problems noted. Son No problems noted. 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 May discontinue sling. Continue physical therapy. Follow up 6 weeks Coding Level of Care Code Global (28006) Diagnoses Status post right rotator cuff repair Z98.890
== END 2024-03-16 12:43 | disposition home or self-care (01) ==
PROVIDERS: PCP Internal Medicine; Visit Provider Orthopaedic Surgery
DX: Z98.890 Other specified postprocedural states (principal)
CPT/HCPCS: 99024

== ENCOUNTER → 2024-03-16 12:09 | Outpatient (BNVA) | payer BC, SELFPAY | PROVIDERS: PCP Internal Medicine; Visit Provider Orthopaedic Surgery ==

== ENCOUNTER 2024-04-06 08:25 | Outpatient (REF) | payer BC, SELFPAY ==
--- OUTSIDE RECORDS SUMMARY | 2024-04-06 08:27 | XMS_ITS ---
Author Organization [facility] Address [address] [place] [address] Care Team Providers Care Cna Per Diem Name Role Phone Joe Reyes MD Primary Care Provider Bob Whitlock Unavailable [phone] ALLERGIES No Known Allergies REASON FOR VISIT PATIENT PRESENTS TODAY FOR COLON SCREENING MEDICATIONS Medication SIG (Take, Route, Frequency, Duration) Notes Start Date End Date Status Atorvastatin Calcium 40 MG Oral for 90 Active Fenofibrate 160 MG Oral for 90 Active Gabapentin 300 MG Oral for 30 Active PROBLEMS Problem Type ICD Code Onset Dates Problem Status W/U Status Risk SNOMED Code Notes Problem History of adenomatous polyp of colon (Z86.010) Active confirmed History of adenomatous polyp of colon (994877470) Problem Colon cancer screening (Z12.11) Active confirmed Colon cancer screening (242697565) Problem Encounter for other preprocedural examination (Z01.818) Active confirmed Pre-procedure evaluation check (692898987) VITAL SIGNS BMI 30.38 kg/m2 05/30/2023 Blood pressure systolic 00 mm Hg 05/30/19 24 Blood pressure diastolic 00 mm Hg 024 Height 72 in 05/30/2023 Temperature 97.4 degrees Fahrenheit 05/30/19 24 Weight 224 lbs 05/30/2023 Encounters Encounter Location Date Provider Diagnosis [facility] [address] [place] [address] 05/30/2023 Bob Forbes History of adenomato us polyp of colon Z86.010 ; Encounter for other preprocedural examination Z01.818 and Colon cancer screening Z12.11 ASSESSMENTS Encounter Date Diagnosis Assessment Notes Treatment Notes Treatment Clinical Notes 05/30/2023 History of adenomatous polyp of colon (ICD-10 - Z86.010) 05/30/2023 Encounter for other preprocedural examination (ICD-10 - Z01.818) 05/30/2023 Colon cancer screening (ICD-10 - Z12.11) PLAN OF TREATMENT Future Test Test Name Order Date COLONOSCOPY 05/30/2023 Next Appt Details Follow Up: prn, Reason: Progress Notes * Examination Category Sub-Category Detail Notes General Examination GENERAL APPEARANCE: pleasant , well nourished, well developed, in no acute distress HEAD: EYES: sclera non-icteric EARS: NOSE: THROAT: NECK/THYROID: no cervical lymphade nopathy, neck supple HEART: S1, S2 normal CHEST: LUNGS: clear to auscultatio n bilaterally ABDOMEN: normal bowel sounds, no guarding or rigidity, no guarding or rigidity, no masses palpable, soft, nontender, nondistended NEUROLOGIC: alert and oriented SKIN: nonjaundiced, no spi linda angiomata EXTREMITIES: no edema PERIPHERAL PULSES: BACK: BREASTS: MUSCULOSKELETAL: MALE GENITOURINARY: LYMPH NODES: RECTAL EXAM: FEMALE GENITOURINARY: ORAL CAVITY: mucosa moist
--- OUTSIDE RECORDS SUMMARY | 2024-04-06 08:28 | XMS_ITS | Patient Health Record ---
Author Organization [facility] Address [address] [place] [address] Care Team Providers Care Statistics Intern Name Role Phone Amy BRUNER, Joe Primary Care Provider Bob Whitlock Unavailable [phone] ALLERGIES No Known Allergies RESULTS Component Value Reference Range Notes Pathology Reviewed date:09/21/2023 07:44:05 PM Interpretation: Performing Lab:[facility], [address] [place] [id number] Notes/Report: REASON FOR REFERRAL No Information MEDICATIONS Medication SIG (Take, Route, Frequency, Duration) Notes Start Date End Date Status Atorvastatin Calcium 40 MG Oral for 90 Active Fenofibrate 160 MG Oral for 90 Active Gabapentin 300 MG Oral for 30 Active SOCIAL HISTORY Sex Assigned At : Social History Observation Description Sex Assigned At Unknown PROBLEMS Problem Type ICD Code Onset Dates Problem Status W/U Status Risk SNOMED Code Notes Problem Encounter for screening for malignant neoplasm of colon (Z12.11) Active confirmed 006867019 Problem Encounter for screening for malignant neoplasm of rectum (Z12.12) Active confirmed Screening for malignant neoplasm of rectum (716999285) Problem Long-term use of aspirin therapy (Z79.82) Active confirmed 428257321 Problem Preprocedural examination (Z01.818) Active confirmed 49890110 Problem History of adenomatous polyp of colon (Z86.010) Active confirmed History o f adenomatous polyp of colon (442206488) Problem Colon cancer screening (Z12.11) Active confirmed Colon can cer screening (808574836) Problem Encounter for other preprocedural examination (Z01.818) Active confirmed Pre-procedure evaluation check (555748425) Problem Diverticulosis of large intestine without perforation or abscess without bleeding (K57.30) Active confirmed Diverticul ar disease of colon (553554989) VITAL SIGNS Temperature 97.4 degrees Fahrenheit 05/30/2023 Blood pressure diastolic 00 mm Hg 05/30/2023 Height 72 in 05/30/2023 Blood pressure systolic 00 mm Hg 05/30/2023 Weight 224 lbs 05/30/2023 BMI 30.38 kg/m2 05/30/2023 Encounters Encounter Location Date Provider Diagnosis [facility] [place] [address] [place] [phone] [place]/02/2023 Bob Forbes Encounter for screen ing colonoscopy Z12.11 ; Colon polyps K63.5 ; Diverticulosis of large intestine without perforation or abscess without bleeding K57.30 and Other hemorrhoids K64.8 [facility] [address] [place] [address] 05/30/2023 Bob Forbes History of adenomato us polyp of colon Z86.010 ; Encounter for other preprocedural examination Z01.818 and Colon cancer screening Z12.11 ASSESSMENTS Encounter Date Diagnosis Assessment Notes Treatment Notes Treatment Clinical Notes 09/02/2023 Encounter for screening colonoscopy (ICD-10 - Z12.11) 09/02/2023 Colon polyps (ICD-10 - K63.5) 05/30/2023 History of adenomatous polyp of colon (ICD-10 - Z86.010) 05/30/2023 Encounter for other preprocedural examination (ICD-10 - Z01.818) 09/02/2023 Diverticulosis of large intestine without perforation or abscess without bleeding (ICD-10 - K57.30) 05/30/2023 Colon cancer screening (ICD-10 - Z12.11) 09/02/2023 Other hemorrhoids (ICD-10 - K64.8) PLAN OF TREATMENT Pending Test Test Name Order Date GI BIOPSY 02/13/2016 Future Test Test Name Order Date COLONOSCOPY 09/27/2015 COLONOSCOPY 05/30/2023 Insurance Providers Payer Name Payer Address Payer Phone Subscriber Number Group Number Insured Name Patient Relationship to Insured Coverage Start Date Coverage End Date [facility] [address] [place], [place] [id number] FRANCISCO LAMAS Self - patient is the insured MEDICAL (GENERAL) HISTORY Medical History History ICD Code Denies AL,DM,CVA,Lung disease,renal dise ase Psoriasis Hyperlipidemia Sleep apnea--uses a CPAP machine Colonoscopy in 01/2013 with 2 small tubu lar adenomas removed Surgical History Surgery Date(Month/Year) Left ankle 1989
[2024-04-06 09:59] LABS: Cholesterol 193 mg/dL (<200); HDL Cholesterol 44 mg/dL (>40); LDL Cholesterol Calculated 113 mg/dL (<100); Triglycerides 184 mg/dL (<150)
== END 2024-04-06 08:26 | disposition home or self-care (01) ==
LOC: HO.LAB 08:25
PROVIDERS: PCP Internal Medicine; Visit Provider Internal Medicine
DX: Z13.220 Encounter for screening for lipoid disorders (principal)
CPT/HCPCS: 36415; 80061

== ENCOUNTER 2024-04-09 10:59 | Outpatient (AMB) | payer BC, SELFPAY ==
--- OUTSIDE RECORDS SUMMARY | 2024-04-09 11:01 | XMS_ITS ---
Author Organization [facility] Address [address] [place] [address] Care Team Providers Care Surgical Coordinator Name Role Phone Joe Reyes MD Primary Care Provider Bob Whitlock Unavailable [phone] REASON FOR VISIT screening, hx polyps PROBLEMS Problem Type ICD Code Onset Dates Problem Status W/U Status Risk SNOMED Code Notes Problem Diverticulosis of large intestine without perforation or abscess without bleeding (K57.30) Active confirmed Diverticul ar disease of colon (477592437) Encounters Encounter Location Date Provider [place] [facility] [place] [address] [place] [phone] 09/02/2023 Bob Forbes Encounter for scre ening colonoscopy Z12.11 ; Colon polyps K63.5 ; Diverticulosis of large intestine without perforation or abscess without bleeding K57.30 and Other hemorrhoids K64.8 ASSESSMENTS Encounter Date Diagnosis Assessment Notes Treatment Notes Treatment Clinical Notes 09/02/2023 Encounter for screening colonoscopy (ICD-10 - Z12.11) 09/02/2023 Colon polyps (ICD-10 - K63.5) 09/02/2023 Diverticulosis of large intestine without perforation or abscess without bleeding (ICD-10 - K57.30) 09/02/2023 Other hemorrhoids (ICD-10 - K64.8) PLAN OF TREATMENT No Information
--- OUTSIDE RECORDS SUMMARY | 2024-04-09 11:02 | XMS_ITS ---
Author Organization [facility] Address [address] [place] [address] Care Team Providers Care Pick And Shovel Man Name Role Phone Joe Reyes MD Primary Care Provider Bob Whitlock Unavailable [phone] ALLERGIES No Known Allergies REASON FOR VISIT [...] confirmed History of adenomatous polyp of colon (172265508) Problem Colon cancer screening (Z12.11) Active confirmed Colon cancer screening (119769884) Problem Encounter for other preprocedural examination (Z01.818) Active confirmed Pre-procedure evaluation check (939981511) VITAL SIGNS BMI 30.38 kg/m2 05/30/2023 Blood pressure systolic 00 mm Hg 05/30/19 24 Blood pressure diastolic 00 mm Hg 024 Height 72 in 05/30/2023 Temperature 97.4 degrees Fahrenheit 05/30/19 24 Weight 224 lbs 05/30/2023 Encounters Encounter Location Date Provider Diagnosis [facility] [address] [place] [address] 05/30/2023 Bob Forbes History of adenomato us [...]
--- OUTSIDE RECORDS SUMMARY | 2024-04-09 11:02 | XMS_ITS | Patient Health Record ---
Author Organization [facility] Address [address] [place] [address] Care Team Providers Care Property Management Intern Name Role Phone Amy BRUNER, Joe Primary Care Provider Bob Whitlock Unavailable [phone] ALLERGIES No Known Allergies RESULTS Component Value Reference Range Notes Pathology Reviewed date:09/21/2023 07:44:05 PM Interpretation: Performing Lab:[facility], [address] [place] [phone] Notes/Report: REASON FOR REFERRAL No Information MEDICATIONS [...] malignant neoplasm of colon (Z12.11) Active confirmed 408883171 Problem Encounter for screening for malignant neoplasm of rectum (Z12.12) Active confirmed Screening for malignant neoplasm of rectum (909022497) Problem Long-term use of aspirin therapy (Z79.82) Active confirmed 061692569 Problem Preprocedural examination (Z01.818) Active confirmed 27022212 Problem History of adenomatous polyp of colon (Z86.010) Active confirmed History o f adenomatous polyp of colon (283143046) Problem Colon cancer screening (Z12.11) Active confirmed Colon can cer screening (561877272) Problem Encounter for other preprocedural examination (Z01.818) Active confirmed Pre-procedure evaluation check (409520500) Problem Diverticulosis of large intestine without perforation or abscess without bleeding (K57.30) Active confirmed Diverticul ar disease of colon (278811835) VITAL SIGNS Temperature 97.4 degrees Fahrenheit 05/30/2023 Blood pressure diastolic 00 mm Hg 05/30/2023 Height 72 in 05/30/2023 Blood pressure systolic 00 mm Hg 05/30/2023 Weight 224 lbs 05/30/2023 BMI 30.38 kg/m2 05/30/2023 Encounters Encounter Location Date Provider Diagnosis [facility] [place] [address] [place], [place] [phone] 09/02/2023 Bob Forbes Encounter for screen ing colonoscopy Z12.11 ; Colon polyps K63.5 ; Diverticulosis of large intestine without perforation or abscess without bleeding K57.30 and Other hemorrhoids K64.8 [facility] [address] [place] [address] 05/30/2023 Bob Forbes History of adenomato us [...] Insured Coverage Start Date Coverage End Date [facility] [address] [place], [place] [id number] [phone] [id number] FRANCISCO LAMAS Self - patient is the insured MEDICAL (GENERAL) HISTORY Medical History History ICD Code Denies PR,DM,CVA,Lung disease,renal dise ase Psoriasis Hyperlipidemia Sleep apnea--uses a CPAP machine Colonoscopy in 01/2013 with 2 small tubu lar adenomas removed Surgical History Surgery Date(Month/Year) Left ankle 1989
[2024-04-09 11:03] VITALS: BP 136/88; PULSE 76; O2SAT 98; BMI 31.5
--- NOTE | 2024-04-09 11:03 | MHC.PC.OV ---
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 [employer] Required: No Accompanied by: Self / Same As Patient Allergies No Known Allergies [No Known Allergies*] Allergy (Verified 04/09/24 11:03) Medication List - Last Reconciled 04/09/24 by Joe Reyes MD [24 Hour Allergy Relief ] apremilast (Otezla) 30 mg PO BID atorvastatin 40 mg PO QPM fenofibrate 160 mg PO DAILY morphine ER (MS Contin) 15 mg PO Q12H 3 days oxycodone-acetaminophen 5-325 mg (Percocet) 1 tab PO Q4-6H PRN 7 days Tobacco use date assessed: 08/16/23 Dental Screening Dental Screen Date: 05/03/23 HPI 3-4 month f/u HPI Details hyperlipidemia on rx; doing well and compliant [facility] Medical History Neck pain Psoriasis FAY on CPAP Hyperlipidemia Surgical History Hx of colonoscopy History of ankle surgery (~1988) Family History Father CAD (coronary artery disease) Stroke Mother Hypothyroidism Hypercholesterolemia Brother No problems noted. Brother No problems noted. Brother No problems noted. Sister No problems noted. Son No problems noted. Son No problems noted. 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 1. Little interest or pleasure in doing things: not at all 2. Feeling down, depressed, or hopeless: not at all 3. Trouble falling or staying asleep, or sleeping too much: not at all 4. Feeling tired or having little energy: not at all 5. Poor appetite or overeating: not at all 6. Feeling bad about yourself - or that you are a failure or have let yourself or your family down: not at all 7. Trouble concentrating on things, such as reading the newspaper or watching television: not at all 8. Moving or speaking so slowly that other people could have noticed. Or the opposite - being so fidgety or restless that you have been moving around a lot more than usual: not at all 9. Thoughts that you would be better off or of hurting yourself in some way: not at all Total score: 0 Depression Screening Interpretation: Negative Depression Screening Done: Yes 51992 - PHQ-9 Billing: Yes Source: Developed by Drs. Bob Valentine, Beverly Johnson, Samuel Estrada and colleagues, with an educational peewee from [employer]. Thrive Questionnaire Date Thrive assessed: 04/09/24 I am a: Patient What is your living situation today?: I have a steady place to live Within the past 12 months, did the food you bought not last and you didn't have the money to get more?: Never true Within the past 12 months, did you worry whether your food would run out before you got money to buy more?: Never true Do you have trouble paying for medicines?: No Do you have trouble getting transportation to medical appointments?: No Do you have trouble paying your heating and electricity bill?: No Do you have trouble taking care of your child, family member or friend?: No Do you have trouble with day-to-day activities such as bathing, preparing meals, shopping, managing finances, etc.?: No Are you currently unemployed and looking for a job?: No Are you interested in more education?: No Please select the resources that you would like help with: None Currently or been in a relationship where the following occur: No concerns reported THRIVE Score: 0 AUDIT C Alcohol Use Questionnaire (AUDIT-C) 1. How often do you have a drink containing alcohol?: 2-3 times a week 2. How many drinks containing alcohol do you have on a typical day when you are drinking?: 1 or 2 Total Score: 3 Score Reviewed/Action Taken: Yes KENROY-7 AMB Questionnaire KENROY-7 Date KENROY - 7 assessed: 04/09/24 Feeling nervous, anxious, or on edge: 0 = Not at all Not being able to stop or control worryin = Not at all Worrying too much about different things: 0 = Not at all Trouble relaxin = Not at all Being so restless that it is hard to sit still: 0 = Not at all Becoming easily annoyed or irritable: 0 = Not at all Feeling afraid as if something awful might happen: 0 = Not at all Total KENROY-7 score (0-4 normal; 5-9 mild; 10-14 moderate; 15-21 severe): 0 Source: Developed by Drs. Bob Valentine, Beverly Johnson, Samuel Estrada and colleagues, with an educational peewee from [employer]. KENROY-7 Assessment Billing KENROY-7 Assessment Tool: KENROY-7 Assessment 86413 Review of Systems Const Denies chills, Denies headache(s) and Denies weight loss ENT Denies headache(s) Card Denies chest pain, Denies syncope, Denies irregular heart rhythm and Denies dyspnea Resp Denies chest congestion, Denies cough and Denies dyspnea GI Denies abdominal pain, Denies change in stool character, Denies nausea and Denies vomiting Musc Denies deformity and Denies joint swelling Neuro Denies syncope and Denies headache(s) Physical exam (Primary Care) Vital Signs: Last Vital Signs Pulse 76 04/09/24 11:03 BP 136/88 04/09/24 11:03 Pulse Ox 98 04/09/24 11:03 Oxygen Delivery Method Room Air 04/09/24 11:03 BMI result Body Mass Index 31.5 Tobacco/Smoking Status: Tobacco use Status Tobacco use date assessed 08/16/23 04/09/24 11:04 Patient Tobacco Use Status Former Tobacco user 04/09/24 11:04 Tobacco use type Cigarette 04/09/24 11:04 e-Cigarette/Vaping Use Never Used 04/09/24 11:04 PHQ-9: PHQ-9 Score PHQ-9: Total score 0 04/09/24 11:04 Depression Screening Interpretation: Negative Thrive Assessment: Date of Thrive Assessment Date Thrive assessed 04/09/24 04/09/24 11:04 Currently or been in a relationship where the following occur: No concerns reported Const General: cooperative, comfortable, no acute distress and alert Neck Neck: Yes no lymphadenopathy Thyroid: Thyroid normal Resp Effort & Inspection: normal respiratory effort Auscultation: clear to auscultation bilaterally Percussion: percussion normal Cardio Jugular venous distension: no JVD Palpation: normal PMI Rate: regular rate Rhythm: regular rhythm Heart sounds: S1 normal heart sound present and S2 normal heart sound present GI Inspection: Yes normal to inspection Palpation (GI): No hepatosplenomegaly present Skin General skin exam: no rashes or lesions noted Extrem General: Yes no clubbing, cyanosis or edema Coding Level of Care Code Est Pt Level 3 (61309) Diagnoses Hyperlipidemia E78.5 Additional Codes KENROY-7 Assessment Billing - KENROY-7 Assessment Tool: KENROY-7 Assessment 17020 ([id number]) PHQ-9 - 61150 - PHQ-9 Billing: Yes ([id number]) Assessment & Plan Assessment & Plan (1) Hyperlipidemia: Code(s): E78.5 - Hyperlipidemia, unspecified Category: Medical Plan: stable; same rx Orders: Orders Lipid Panel Today Z13.220 - Encounter for screening for lipoid disorders Referrals General Surgery Referral J34.89 - Other specified disorders of nose and nasal sinuses
== END 2024-04-09 11:44 | disposition home or self-care (01) ==
PROVIDERS: PCP Internal Medicine; Visit Provider Internal Medicine
DX: E78.5 Hyperlipidemia, unspecified (principal)

== ENCOUNTER → 2024-04-09 10:59 | Outpatient (BNVA) | payer BC, SELFPAY | PROVIDERS: PCP Internal Medicine; Visit Provider Internal Medicine | DX: E78.5 Hyperlipidemia, unspecified (principal); J34.89 Other specified disorders of nose and nasal sinuses | CPT/HCPCS: 96127 ==

== ENCOUNTER 2024-04-27 12:14 | Outpatient (AMB) | payer BC, SELFPAY ==
--- NOTE | 2024-04-27 12:16 | MHC.OFFVIS ---
Intake Visit Reasons: PO RT RTC 02/05/24 NE Intake Note: Niranjan is a 59 year old male who presents today for a post operative follow up s/p RT RTC 02/05/24 NE. Patient reports that he is doing well he continues to work with PT. When he is doing his exercises he feels a pulling pain in the tricep area, he has discussed this with PT. Allergies No Known Allergies [No Known Allergies*] Allergy (Verified 04/27/24 12:19) HPI HPI PO RT RTC 02/05/24 NE: Details: Almost 3 months postop. Working well with physical therapy. PFSH Medical History Neck pain Psoriasis FAY on CPAP Hyperlipidemia Surgical History Hx of colonoscopy History of ankle surgery (~1988) Family History Father CAD (coronary artery disease) Stroke Mother Hypothyroidism Hypercholesterolemia Brother No problems noted. Brother No problems noted. Brother No problems noted. Sister No problems noted. Son No problems noted. Son No problems noted. 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 Doing well. Follow up 3 months Coding Level of Care Code Global (10244) Diagnoses Status post right rotator cuff repair Z98.890
--- OUTSIDE RECORDS SUMMARY | 2024-04-27 14:30 | XMS_ITS ---
Author Organization [facility] Address [address] [place] [address] Care Team Providers Care Order Worker Name Role Phone Joe Reyes MD Primary Care Provider Bob Whitlock Unavailable [phone] ALLERGIES No Known Allergies REASON FOR VISIT [...] confirmed History of adenomatous polyp of colon (174740088) Problem Colon cancer screening (Z12.11) Active confirmed Colon cancer screening (198010554) Problem Encounter for other preprocedural examination (Z01.818) Active confirmed Pre-procedure evaluation check (606051381) VITAL SIGNS BMI 30.38 kg/m2 05/30/2023 Blood pressure systolic 00 mm Hg 05/30/19 24 Blood pressure diastolic 00 mm Hg 024 Height 72 in 05/30/2023 Temperature 97.4 degrees Fahrenheit 05/30/19 24 Weight 224 lbs 05/30/2023 Encounters Encounter Location Date Provider Diagnosis [facility] [address] [place] [address] 05/30/2023 Bob Forbes History of adenomato us [...]
--- OUTSIDE RECORDS SUMMARY | 2024-04-27 14:30 | XMS_ITS | Patient Health Record ---
Author Organization [facility] Address [address] [place] [address] Care Team Providers Care Company Laundry Worker Name Role Phone Amy BRUNER, Joe Primary Care Provider Bob Whitlock Unavailable [phone] ALLERGIES No Known Allergies RESULTS Component Value Reference Range Notes Pathology Reviewed date:09/21/2023 07:44:05 PM Interpretation: Performing Lab:[facility], [address] [place] [id number] Notes/Report: REASON FOR REFERRAL No Information MEDICATIONS [...] malignant neoplasm of colon (Z12.11) Active confirmed 373394361 Problem Encounter for screening for malignant neoplasm of rectum (Z12.12) Active confirmed Screening for malignant neoplasm of rectum (553047646) Problem Long-term use of aspirin therapy (Z79.82) Active confirmed 641748520 Problem Preprocedural examination (Z01.818) Active confirmed 12078866 Problem History of adenomatous polyp of colon (Z86.010) Active confirmed History o f adenomatous polyp of colon (906117191) Problem Colon cancer screening (Z12.11) Active confirmed Colon can cer screening (819429214) Problem Encounter for other preprocedural examination (Z01.818) Active confirmed Pre-procedure evaluation check (905922424) Problem Diverticulosis of large intestine without perforation or abscess without bleeding (K57.30) Active confirmed Diverticul ar disease of colon (131001526) VITAL SIGNS Temperature 97.4 degrees Fahrenheit 05/30/2023 Blood pressure diastolic 00 mm Hg 05/30/2023 Height 72 in 05/30/2023 Blood pressure systolic 00 mm Hg 05/30/2023 Weight 224 lbs 05/30/2023 BMI 30.38 kg/m2 05/30/2023 Encounters Encounter Location Date Provider Diagnosis [facility] Outpatient [address] [place], [place] [id number] 09/02/2023 Bob Forbes Encounter for screen ing colonoscopy Z12.11 ; Colon polyps K63.5 ; Diverticulosis of large intestine without perforation or abscess without bleeding K57.30 and Other hemorrhoids K64.8 [facility] [address] [place] [address] 05/30/2023 Bob Forbes History of adenomato us [...] Insured Coverage Start Date Coverage End Date [facility] [address] [place], [place] [id number] FRANCISCO LAMAS Self - patient is the insured MEDICAL (GENERAL) HISTORY Medical History History ICD Code Denies [place],DM,CVA,Lung disease,renal dise ase Psoriasis Hyperlipidemia Sleep apnea--uses a CPAP machine Colonoscopy in 01/2013 with 2 small tubu lar adenomas removed Surgical History Surgery Date(Month/Year) Left ankle 1989
== END 2024-04-27 12:34 | disposition home or self-care (01) ==
PROVIDERS: PCP Internal Medicine; Visit Provider Orthopaedic Surgery
DX: Z98.890 Other specified postprocedural states (principal)
CPT/HCPCS: 99024

== ENCOUNTER 2024-05-27 11:53 | Outpatient (RCR) | payer BC, SELFPAY ==
--- NOTE | 2024-06-25 11:37 | MHC.PT.DC ---
[facility] [place] Office [place] Office [place] Office [address] Eulalia Biggs [address] [phone] F: [phone] F: [phone] F: [phone] F: [phone] Physical Therapy Discharge Report Diagnosis: S/P RTCR 02/04 W/ NE Date of Surgery: 02/05/24 Date of Evaluation: 02/20/24 Date of Discharge: 05/26/24 Treatments to Date: 20 Cancellations to Date: 0 No Shows to Date: 0 Discharge Status: Improved Function Independent with HEP Patient Elected to Stop Discharge Summary: Pt going away for 7 weeks and will see MD for follow up at that time. Independent with current HEP and has progressed well in PT. Able to self manage at this time and educ to contact our office with any questions or concerns Electronically signed by: Parul Corbett PT DPT Please sign and return to therapist. Thank you for your referral.
== END 2024-06-25 11:37 | disposition home or self-care (01) ==
LOC: HO.PT 11:53
PROVIDERS: PCP Internal Medicine; Visit Provider Physician Assistant
DX: M75.101 Unspecified rotator cuff tear or rupture of right shoulder, not specified as traumatic (principal); Z98.890 Other specified postprocedural states
CPT/HCPCS: 97110; 97140; 97161; 97530

== ENCOUNTER 2024-08-10 10:53 | Outpatient (AMB) | payer BC, SELFPAY ==
[2024-08-10 10:55] VITALS: BMI 31.5
--- NOTE | 2024-08-10 10:55 | MHC.OFFVIS ---
Vital Signs 08/10/24 10:55 Height 6 ft Weight 232 lb BMI 31.5 Intake Visit Reasons: OV- RT RTC 02/05/24 NE-follow up Intake Note: Niranjan is a 59 year old right hand dominant male who presents today for a post operative follow up s/p RT RTC 02/05/24 NE. Patient reports that he is doing well, he continues to have painful ROM The pain is mostly felt in the tricep area. He had stopped PT for some time and traveled and has upcoming appointments. Allergies No Known Allergies [No Known Allergies*] Allergy (Verified 04/27/24 12:19) HPI HPI OV- RT RTC 02/05/24 NE-follow up: Details: Six months status post right rotator cuff repair. He is doing well. He still has some stiffness in overhead activity but no pain. He is sleeping well. He had a. Physical therapy for a little while and he is set to restart this week. PFSH Medical History Neck pain Psoriasis FAY on CPAP Hyperlipidemia Surgical History Hx of colonoscopy History of ankle surgery (~1988) Family History Father CAD (coronary artery disease) Stroke Mother Hypothyroidism Hypercholesterolemia Brother No problems noted. Brother No problems noted. Brother No problems noted. Sister No problems noted. Son No problems noted. Son No problems noted. 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 Continue PT Periscapular exercies f/u 3 mo Coding Level of Care Code Est Pt Level 3 (60609) Diagnoses Status post right rotator cuff repair Z98.890
--- OUTSIDE RECORDS SUMMARY | 2024-08-10 13:02 | XMS_ITS | Clinical Summary ---
Author Organization [facility] Address [address] [place] [address] Care Team Providers Care Maid Supervisor Name Role Phone Unavailable Primary Care Provider Unavailabl e Allergies No known active allergies Medications Medication Sig Dispensed Refills Start Date End Date Status atorvastatin (LIPITOR) tablet 40 mg Take 40 mg by mouth daily. 0 07/02/2020 Active fenofibrate (TRIGLIDE) 160 MG tablet Take 160 mg by mouth daily. 0 07/20/2020 Active Social History Tobacco Use Types Packs/Day Years Used Date Smoking Tobacco: Former Cigarettes Q uit: 08/25/2011 Smokeless Tobacco: Never Alcohol Use Standard Drinks/Week Comments Yes 0 (1 standard drink = 0.6 oz pur e alcohol) Sex and Gender Information Value Date Recorded Sex Assigned at Not on file Gender Identity Not on file Sexual Orientation Not on file Job Start Date Occupation Industry Not on file Not on file Not on file Last Filed Vital Signs Vital Sign Reading Time Taken Comments Blood Pressure 156/98 08/25/2020 2:54 PM EDT Pulse 87 08/25/2020 2:54 PM EDT Temperature - - Respiratory Rate 16 08/25/2020 2:54 PM EDT Oxygen Saturation 97% 08/25/2020 2:54 PM EDT Inhaled Oxygen Concentration - - Weight 99.8 kg (220 lb) 08/24/2020 2:13 PM EDT Height 182.9 cm (6') 08/24/2020 2:13 PM EDT Body Mass Index 29.84 08/24/2020 2:13 PM EDT Plan of Treatment Health Maintenance Due Date Last Done Comments Hepatitis C Screening 1964 COVID-19 Vaccine (#1) 1964 Depression Screening 1976 Preventative Health Evaluation 1982 DTap / Tdap / Td (1 - Tdap) 1983 Colon Cancer Screening (Colonoscopy) 2009 Shingrix-Zoster Vaccine (1 of 2) 2014 Influenza Vaccine (#1) 2023 RSV Adult > 60+ Yrs or Pregn ant (1 - 1-dose 75+ series) 2039 Hepatitis B Vaccines Aged Out No long er eligible based on patient's age to complete this topic Pneumococcal Vaccine Aged Out No long er eligible based on patient's age to complete this topic RSV Ped < 20 months Aged Out No longe r eligible based on patient's age to complete this topic Advance Directives For more information, please contact: [phone] Documents on File Type Date Recorded Patient Beet Topper Expl anation Advance Directive and Living Will 08/25/2020 2:15 PM
--- OUTSIDE RECORDS SUMMARY | 2024-08-10 13:02 | XMS_ITS ---
Author Name [facility] Organization Unknown Encounters Encounter Type Encounter Reason Primary Diagnosis Location Date Ambulatory [facility] 01/24/2024 Care Team Organization Name Specialty Phone Email Start Date End Da te [facility] 2024
--- OUTSIDE RECORDS SUMMARY | 2024-08-10 13:02 | XMS_ITS | Clinical Summary ---
Author Organization [facility] Address [address] [place] [address] Care Team Providers Care Payment Analyst Name Role Phone Unavailable Primary Care Provider Unavailabl e Surgical History Surgery Date Site/Laterality Comments FRACTURE SURGERY PROCEDURE:FRACTURE SURGERY;COMMENT:ankle Medical History Medical History Date Comments High cholesterol DX:High cholest minnie Social History Tobacco Use Types Packs/Day Years Used Date Smoking Tobacco: Former Cigarettes Q uit: 08/25/2011 Smokeless Tobacco: Never Alcohol Use Standard Drinks/Week Comments Yes 0 (1 standard drink = 0.6 oz pur e alcohol) Sex and Gender Information Value Date Recorded Sex Assigned at Not on file Legal Sex Male 10:45 AM EST Gender Identity Not on file Sexual Orientation Not on file Obstetrics History Plan of Treatment Health Maintenance Due Date Last Done Comments DTaP,Tdap,and Td Vaccines (1 - Tdap) 1983 Pneumococcal Vaccine: 50+ Ye ars (1 of 1 - PCV) 2014 Zoster Vaccines (1 of 2) 2014 COVID-19 Vaccine ( - 2023-2 5 season) 2023 Influenza Vaccine (Season Ended) 2024 RSV Immunization Adult Patie nts (1 - 1-dose 75+ series) 2039 HIB Vaccines Aged Out No longer eligi ble based on patient's age to complete this topic HPV Vaccines Aged Out No longer eligi ble based on patient's age to complete this topic Hepatitis A Vaccines Aged Out No long er eligible based on patient's age to complete this topic Hepatitis B Vaccines Aged Out No long er eligible based on patient's age to complete this topic IPV Vaccines Aged Out No longer eligi ble based on patient's age to complete this topic MMR Vaccines Aged Out No longer eligi ble based on patient's age to complete this topic Meningococcal ACWY Vaccine Aged Out N o longer eligible based on patient's age to complete this topic Meningococcal B Vaccine Aged Out No l onger eligible based on patient's age to complete this topic Pneumococcal Vaccine: Pediat rics (0 to 5 Years) and At-Risk Patients (6 to 64 Years) Aged Out No longer eligible b ased on patient's age to complete this topic RSV Immunization Patients Un linda 20 months Aged Out No longer eligible b ased on patient's age to complete this topic Varicella Vaccines Aged Out No longer eligible based on patient's age to complete this topic
== END 2024-08-10 11:41 | disposition home or self-care (01) ==
LOC: HO.HOS 10:53
PROVIDERS: PCP Internal Medicine; Visit Provider Orthopaedic Surgery
DX: Z47.89 Encounter for other orthopedic aftercare (principal); M75.101 Unspecified rotator cuff tear or rupture of right shoulder, not specified as traumatic
CPT/HCPCS: 99213

== ENCOUNTER 2024-09-28 08:09 | Outpatient (REF) | payer BC, SELFPAY ==
--- OUTSIDE RECORDS SUMMARY | 2024-09-28 08:21 | XMS_ITS | Patient Health Record ---
Author Organization [facility] Address [address] [place] [address] Care Team Providers Care Cement Tile Maker Name Role Phone Amy BRUNER, Joe Primary Care Provider Bob Whitlock Unavailable [phone] Allergies No Known Allergies Reason For Referral No Information Medications Medication SIG (Take, Route, Frequency, Duration) Notes Start Date End Date Status Atorvastatin Calcium 40 MG Oral for 90 Active Fenofibrate 160 MG Oral for 90 Active Gabapentin 300 MG Oral for 30 Active Problems Problem Type SNOMED Code ICD Code Onset Dates Problem Status W/U Status Risk Notes Problem Colon cancer screening (109083608) Colon cancer screening (Z12.11) Active confirmed Problem 163845919 Encounter for screening for malignant neoplasm of colon (Z12.11) Active confirmed Problem History of adenomatous polyp of colon (765601947) History of adenomatous polyp of colon (Z86.010) Active confirmed Problem Pre-procedure evaluation check (465655977) Encounter for other preprocedural examination (Z01.818) Active confirmed Problem Diverticular disease of colon (406245289) Diverticulosis of large intestine without perforation or abscess without bleeding (K57.30) Active confirmed Problem Screening for malignant neoplasm of rectum (644373041) Encounter for screening for malignant neoplasm of rectum (Z12.12) Active confirmed Problem 46963691 Preprocedural examination (Z01.818) Active confirmed Problem 436548928 Long-term use of aspirin therapy (Z79.82) Active confirmed Plan Of Treatment Pending Test Test Name Order Date GI BIOPSY 02/13/2016 Future Test Test Name Order Date COLONOSCOPY 09/27/2015 COLONOSCOPY 05/30/2023 Insurance Providers Payer Name Payer Address Payer Phone Subscriber Number Group Number Insured Name Patient Relationship to Insured Coverage Start Date Coverage End Date [facility] [address] [place], [place] [id number] [phone] [id number] FRANCISCO LAMAS Self - patient is the insured Medical (General) History Medical History History ICD Code Denies [place],DM,CVA,Lung disease,renal dise ase Psoriasis Hyperlipidemia Sleep apnea--uses a CPAP machine Colonoscopy in 01/2013 with 2 small tubu lar adenomas removed Surgical History Surgery Date(Month/Year) Left ankle 1988
[2024-09-28 09:08] LABS: Cholesterol 178 mg/dL (<200); HDL Cholesterol 41 mg/dL (>40); LDL Cholesterol Calculated 99 mg/dL (<100); Triglycerides 192 mg/dL (<150)
== END 2024-09-28 08:10 | disposition home or self-care (01) ==
LOC: HO.LAB 08:09
PROVIDERS: Internal Medicine; PCP Internal Medicine; Visit Provider Internal Medicine
DX: Z13.220 Encounter for screening for lipoid disorders (principal)
CPT/HCPCS: 36415; 80061

== ENCOUNTER 2024-09-29 13:00 | Outpatient (RCR) | payer BC, SELFPAY ==
--- NOTE | 2024-08-11 15:14 | MHC.PT.EP ---
[facility] [place] Office [place] Office [place] Office [address] Eulalia Biggs [address] [phone] F: [phone] F: [phone] F: [phone] F: [phone] Physical Therapy Plan of Care Date of Evaluation: 08/11/24 Date of Surgery: 02/05/24 Diagnosis: s/p R RTC Repair 02/05/24 Assessment: 59 y/o R-hand dominant male s/p R RTC Repair, biceps tenotomy, SAD, and DCE on 02/05/24. 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 Recommend PT 2x/week for 5 weeks to address impairments, implement HEP, and optimize functional mobility Frequency and Duration: The patient will be seen 2x/week for 5 weeks Short Term Goals: 3 weeks I with HEP Improve R shoulder flexion to 150 Prison Goals: 5 weeks I with HEP and self management of sx Pt will return to yardwork with R shoulder pain < 3/10 Pt will be able to reach out to R side with pain < 3/10 Pt will have >75% R shoulder ROM all directions Treatment Plan: Modalities to reduce pain, spasms and effusion. Manual therapy to restore motion and function. Therapeutic exercise to improve strength and flexibility. Neuromuscular re-education for posture and balance. Therapeutic activities to return to functional activities of daily living. Electronically signed by: Shelli Ledesma PT Please sign and return to therapist. Thank you for your referral.
--- NOTE | 2024-09-29 13:57 | MHC.PT.DC ---
[facility] [place] Office [place] Office [place] Office [address] Eulalia Biggs [address] [phone] F: [phone] F: [phone] F: [phone] F: [phone] Physical Therapy Discharge Report Diagnosis: s/p R RTC Repair 02/05/24 Date of Surgery: 02/05/24 Date of Evaluation: 08/11/24 Date of Discharge: 09/29/24 Treatments to Date: 10 Cancellations to Date: 0 No Shows to Date: 0 Discharge Status: Achieved Goals Improved Function Independent with HEP Discharge Summary: Went through patients HEP and he is fully I with ROM WFL and painfree. SPADI 11/130. At this time he is appropriate for d/c secondary to I with HEP and meeting all goals. No further questions at this time. Electronically signed by: Shelli Ledesma PT Please sign and return to therapist. Thank you for your referral.
== END 2024-09-29 13:58 | disposition home or self-care (01) ==
LOC: HO.PT 13:00
PROVIDERS: PCP Internal Medicine; Visit Provider Physician Assistant
DX: Z98.890 Other specified postprocedural states (principal)
CPT/HCPCS: 97110; 97140; 97161; 97530

== ENCOUNTER 2024-09-30 11:29 | Outpatient (AMB) | payer BC, SELFPAY ==
--- NOTE | 2024-09-30 11:30 | MHC.PC.OV ---
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: Patient has dentist [facility] Medical History (Updated 09/30/24 @ 11:52 by Robert Anton MD) Neck pain Psoriasis FAY on CPAP Hyperlipidemia Surgical History (Updated 09/30/24 @ 11:54 by Robert Anton MD) Hx of colonoscopy History of ankle surgery (~1988) Family History Father CAD (coronary artery disease) Stroke Mother Hypothyroidism Hypercholesterolemia Brother No problems noted. Brother No problems noted. Brother No problems noted. Sister No problems noted. Son No problems noted. Son No problems noted. Social History (Updated 09/30/24 @ 11:58 by Robert Anton MD) Housing: House Alcohol intake: current Comment: 3-4 x a week 2-3 drinks- occ 3-4 drinks Patient Tobacco Use Status: Former Tobacco user Tobacco use type: Cigarette Years Smoked: quit 2019, 1.5 pack a week x 20 years . 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 1. Little interest or pleasure in doing things: not at all 2. Feeling down, depressed, or hopeless: not at all 3. Trouble falling or staying asleep, or sleeping too much: not at all 4. Feeling tired or having little energy: several days 5. Poor appetite or overeating: not at all 6. Feeling bad about yourself - or that you are a failure or have let yourself or your family down: not at all 7. Trouble concentrating on things, such as reading the newspaper or watching television: not at all 8. Moving or speaking so slowly that other people could have noticed. Or the opposite - being so fidgety or restless that you have been moving around a lot more than usual: not at all 9. Thoughts that you would be better off or of hurting yourself in some way: not at all Total score: 1 Source: Developed by Drs. Bob Valentine, Beverly Johnson, Samuel Estrada and colleagues, with an educational peewee from [employer]. Thrive Questionnaire Date Thrive assessed: 09/30/24 I am a: Patient What is your living situation today?: I have a steady place to live Within the past 12 months, did the food you bought not last and you didn't have the money to get more?: Never true Within the past 12 months, did you worry whether your food would run out before you got money to buy more?: Never true Do you have trouble paying for medicines?: I choose not to answer this question Do you have trouble getting transportation to medical appointments?: No Do you have trouble paying your heating and electricity bill?: I choose not to answer this question Do you have trouble taking care of your child, family member or friend?: I choose not to answer this question Do you have trouble with day-to-day activities such as bathing, preparing meals, shopping, managing finances, etc.?: No Are you currently unemployed and looking for a job?: No Are you interested in more education?: I choose not to answer this question Please select the resources that you would like help with: None Currently or been in a relationship where the following occur: I choose not to answer THRIVE Score: 0 AUDIT C Alcohol Use Questionnaire (AUDIT-C) 1. How often do you have a drink containing alcohol?: 2-3 times a week 2. How many drinks containing alcohol do you have on a typical day when you are drinking?: 3 or 4 3. How often do you have six or more drinks on one occasion?: Less than monthly Total Score: 5 KENROY-7 AMB Questionnaire KENROY-7 Date KENROY - 7 assessed: 09/30/24 Feeling nervous, anxious, or on edge: 1 = Several days Not being able to stop or control worryin = Not at all Worrying too much about different things: 0 = Not at all Trouble relaxin = Not at all Being so restless that it is hard to sit still: 0 = Not at all Becoming easily annoyed or irritable: 0 = Not at all Feeling afraid as if something awful might happen: 0 = Not at all Total KENROY-7 score (0-4 normal; 5-9 mild; 10-14 moderate; 15-21 severe): 1 Source: Developed by Drs. Bob Valentine, Beverly Johnson, Samuel Estrada and colleagues, with an educational peewee from [employer]. Physical exam (Primary Care) Vital Signs: Last Vital Signs Pulse 80 09/30/24 11:31 BP 124/80 09/30/24 11:31 Pulse Ox 95 09/30/24 11:31 Oxygen Delivery Method Room Air 09/30/24 11:31 BMI result Body Mass Index 31.3 Tobacco/Smoking Status: Tobacco use Status Tobacco use date assessed 09/30/24 09/30/24 11:36 Patient Tobacco Use Status Former Tobacco user 09/30/24 11:58 Tobacco use type Cigarette 09/30/24 11:58 e-Cigarette/Vaping Use Never Used 09/30/24 11:58 PHQ-9: PHQ-9 Score PHQ-9: Total score 1 09/30/24 11:47 Thrive Assessment: Date of Thrive Assessment Date Thrive assessed 09/30/24 09/30/24 11:36 Currently or been in a relationship where the following occur: I choose not to answer Const General: alert; No acute distress Eyes Conjunctivae: conjunctivae normal Resp Auscultation: clear to auscultation bilaterally Cardio Rate: regular rate Rhythm: regular rhythm GI Inspection: Yes normal to inspection Extrem General: Yes normal to inspection and No edema Coding Level of Care Code Est Pt Level 4 (23180) Diagnoses Hyperlipidemia E78.5 Status post right rotator cuff repair Z98.890 Psoriasis L40.9 Obesity (BMI 30-39.9) E66.9 FAY on CPAP G47.33 Assessment & Plan Assessment & Plan (1) Hyperlipidemia: Code(s): E78.5 - Hyperlipidemia, unspecified Category: Medical Plan: Avoid fried foods, chicken skin, eggs, butter margarine, pastries and meat. Be it pork or beef they have a lot of cholesterol LDL goal of less than 130 and triglyceride of less than 150. Patient on fenofibrate and atorvastatin (2) Status post right rotator cuff repair: Comment: January 2024 Code(s): Z98.890 - Other specified postprocedural states Category: Surgical Plan: Patient on physical therapy and continue to follow-up with orthopedics (3) Psoriasis: Code(s): L40.9 - Psoriasis, unspecified Category: Medical Plan: Continue to follow-up with dermatology on Otezla (4) Obesity (BMI 30-39.9): Code(s): E66.9 - Obesity, unspecified Category: Medical Plan: Diet and exercise (5) FAY on CPAP: Code(s): G47.33 - Obstructive sleep apnea (adult) (pediatric) Category: Medical Plan History of Present Illness The patient is a 59-year-old male presenting for a wellness visit and management of chronic conditions. The patient has a history of hypercholesterolemia, managed with atorvastatin and fenofibrate. His last cholesterol test on September 28, 2024, showed a triglyceride level of 192 mg/dL and an LDL of 99 mg/dL. He has been advised to maintain a healthy diet and exercise regularly to manage his cholesterol levels. The patient has a history of cervicalgia and psoriasis, for which he is under dermatological care and is currently on Otezla, which he reports is effective. He underwent a colonoscopy in August 2023, which revealed a tubular adenoma, and he is advised to follow up in five years. The patient is status post right rotator cuff repair in January 2024 and has been undergoing physical therapy. He reports improvement in shoulder function with no significant pain. The patient has a history of sleep apnea and uses a CPAP machine, although he is uncertain about its effectiveness. A referral to sleep medicine for further evaluation has been made. Health Maintenance - Colonoscopy follow-up recommended in five years due to tubular adenoma findings - Blood work including cholesterol, sugar, kidney, liver function, and prostate numbers scheduled every three months - Referral to sleep medicine for evaluation of CPAP effectiveness - Advised to maintain a healthy diet and regular exercise to manage cholesterol levels Social History - Alcohol use: Consumes alcohol three to four times a week, typically two to three drinks per occasion - Former smoker: Quit smoking in 2019 after smoking intermittently for 20 years - Exercise: Engages in walking and golfing, uses a treadmill inconsistently - Diet: Attempts to maintain a balanced diet, but has a preference for desserts Review of Systems - General: Denies fatigue, reports feeling good overall - Cardiovascular: Denies chest pain, heart problems, or history of heart attacks - Respiratory: Denies asthma or COPD - Gastrointestinal: Denies abdominal pain, constipation, diarrhea, or blood in stools - Neurological: Denies seizures - Musculoskeletal: Reports improvement in shoulder function post-surgery, denies significant pain - Dermatological: Reports psoriasis, managed with Otezla - Sleep: Reports using CPAP for sleep apnea, uncertain about its effectiveness Physical Exam General: Cooperative, healthy appearing, comfortable, no acute distress and well developed Orientation: Patient oriented x3 Limitations: No limitations Head: Normal to inspection Ears: Hearing with some difficulty, earwax present but not obstructing Nose: Normal external nose present Face and sinus: Normal facial exam Eyes: Appearance normal, both eyes and all related structures Neck: Normal visual inspection and Yes full ROM Respiratory: Normal respiratory effort and able to speak in complete sentences. Clear to auscultation bilaterally Cardiovascular: Regular rate and rhythm. Normal S1 and S2 GI: Normal to inspection. Soft to palpation and nontender Skin: No rashes or lesions noted Neuro: Patient oriented x3 Extremities: Normal to inspection, right shoulder with slight stiffness but no pain Results - Labs: Cholesterol test on September 28, 2024, showed triglycerides at 192 mg/dL and LDL at 99 mg/dL - Labs: Blood count in December 2022 was normal - Labs: Creatinine level in December 2022 was 1.03 mg/dL Plan The patient will continue with his current cholesterol management regimen, including atorvastatin and fenofibrate, with regular monitoring of lipid levels every three months. A referral to sleep medicine has been made to evaluate the effectiveness of his CPAP therapy for sleep apnea. The patient is advised to maintain a healthy diet and regular exercise to manage his cholesterol levels and overall health. Follow-up colonoscopy is recommended in five years due to the previous finding of a tubular adenoma. Routine blood work will include cholesterol, sugar, kidney, liver function, and prostate numbers. Patient was informed and verbally consented to the use of an ambient scribe for clinic note documentation during this visit. Discussion Notes I discussed with the patient the importance of maintaining a healthy lifestyle to manage his hypercholesterolemia, including diet and exercise. We reviewed his recent cholesterol levels and the need for regular monitoring. I also explained the referral to sleep medicine to assess the effectiveness of his CPAP therapy. We discussed the follow-up colonoscopy in five years due to the previous finding of a tubular adenoma. Patient Instructions - Continue taking atorvastatin and fenofibrate as prescribed. - Maintain a healthy diet and regular exercise routine. - Attend the scheduled appointment with sleep medicine for CPAP evaluation. - Follow up with routine blood work every three months. - Schedule a follow-up colonoscopy in five years. Orders: Orders Comprehensive Met. Panel 3 Months E78.5 - Hyperlipidemia, unspecified Free T4 (Free Thyroxine) 3 Months E78.5 - Hyperlipidemia, unspecified Thyroid Stimulating Hormone 3 Months E78.5 - Hyperlipidemia, unspecified Lipid Panel 3 Months E78.00 - Pure hypercholesterolemia, unspecified, E78.5 - Hyperlipidemia, unspecified Vitamin B12 and Folate 3 Months E78.5 - Hyperlipidemia, unspecified Prostate Specific Antigen Scr 3 Months E78.5 - Hyperlipidemia, unspecified Hemoglobin A1c 3 Months E78.5 - Hyperlipidemia, unspecified Complete Blood Count Auto Diff 3 Months E78.5 - Hyperlipidemia, unspecified Referrals Sleep Medicine Referral G47.33 - Obstructive sleep apnea (adult) (pediatric)
[2024-09-30 11:31] VITALS: BP 124/80; PULSE 80; O2SAT 95; BMI 31.3
--- OUTSIDE RECORDS SUMMARY | 2024-09-30 13:27 | XMS_ITS | Patient Health Record ---
Author Organization [facility] Address [address] [place] [address] Care Team Providers Care Senior Android Developer Name Role Phone Amy BRUNER, Joe Primary Care Provider Bob Whitlock Unavailable [phone] Allergies No Known Allergies Reason For Referral No Information Medications Medication SIG (Take, Route, Frequency, Duration) Notes Start Date End Date Status Atorvastatin Calcium 40 MG Oral for 90 Active Fenofibrate 160 MG Oral for 90 Active Gabapentin 300 MG Oral for 30 Active Problems Problem Type SNOMED Code ICD Code Onset Dates Problem Status W/U Status Risk Notes Problem Colon cancer screening (812421674) Colon cancer screening (Z12.11) Active confirmed Problem 271187339 Encounter for screening for malignant neoplasm of colon (Z12.11) Active confirmed Problem History of adenomatous polyp of colon (369438844) History of adenomatous polyp of colon (Z86.010) Active confirmed Problem Pre-procedure evaluation check (049331759) Encounter for other preprocedural examination (Z01.818) Active confirmed Problem Diverticular disease of colon (943928292) Diverticulosis of large intestine without perforation or abscess without bleeding (K57.30) Active confirmed Problem Screening for malignant neoplasm of rectum (392873261) Encounter for screening for malignant neoplasm of rectum (Z12.12) Active confirmed Problem 72237496 Preprocedural examination (Z01.818) Active confirmed Problem 311742418 Long-term use of aspirin therapy (Z79.82) Active confirmed Plan Of Treatment Pending Test Test Name Order Date GI BIOPSY 02/13/2016 Future Test Test Name Order Date COLONOSCOPY 09/27/2015 COLONOSCOPY 05/30/2023 Insurance Providers Payer Name Payer Address Payer Phone Subscriber Number Group Number Insured Name Patient Relationship to Insured Coverage Start Date Coverage End Date [facility] [address] [place], [place] [id number] [phone] [id number] FRANCISCO LAMAS Self - patient is the insured Medical (General) History Medical History History ICD Code Denies SC,DM,CVA,Lung disease,renal dise ase Psoriasis Hyperlipidemia Sleep apnea--uses a CPAP machine Colonoscopy in 01/2013 with 2 small tubu lar adenomas removed Surgical History Surgery Date(Month/Year) Left ankle 1988
== END 2024-09-30 12:14 | disposition home or self-care (01) ==
LOC: HO.HMCH 11:30
PROVIDERS: PCP Internal Medicine; Visit Provider Internal Medicine
DX: E78.5 Hyperlipidemia, unspecified (principal); E66.9 Obesity, unspecified; Z68.31 Body mass index [BMI] 31.0-31.9, adult; Z98.890 Other specified postprocedural states; L40.9 Psoriasis, unspecified; G47.33 Obstructive sleep apnea (adult) (pediatric)

== ENCOUNTER → 2024-09-30 11:29 | Outpatient (BNVA) | payer BC, SELFPAY | PROVIDERS: PCP Internal Medicine; Visit Provider Internal Medicine ==

== ENCOUNTER 2024-11-09 11:26 | Outpatient (AMB) | payer BC, SELFPAY ==
[2024-11-09 11:28] VITALS: BMI 31.2
--- NOTE | 2024-11-09 11:28 | A.OFFVIS_ITS ---
Vital Signs 11/09/24 11:28 Height 6 ft Weight 230 lb BMI 31.2 Intake Visit Reasons: OV- RT RTC Repair 02/05/24 NE Intake Note: Niranjan is a 59 year old right hand dominant male who presents today for a post operative follow up s/p RT RTC Repair 02/05/24 NE. Patient reports he is doing well, no further concerns. Has been at work since surgery. Has attended physical therapy, with major improvement. Allergies No Known Allergies (No Known Allergies*) Allergy (Verified 11/09/24 11:32) HPI HPI OV- RT RTC Repair 02/05/24 NE: Details: Nine months postop doing very well. He states he has near full range of motion with slight restriction in terminal overhead forward flexion and abduction. He is slowly returning to full strengthening in the gym. He is happy with his progress so far. [facility] Medical History (Updated 09/30/24 @ 11:52 by Robert Anton MD) Neck pain Psoriasis FAY on CPAP Hyperlipidemia Surgical History (Updated 09/30/24 @ 11:54 by Robert Anton MD) Hx of colonoscopy History of ankle surgery (~1988) Family History Father CAD (coronary artery disease) Stroke Mother Hypothyroidism Hypercholesterolemia Brother No problems noted. Brother No problems noted. Brother No problems noted. Sister No problems noted. Son No problems noted. Son No problems noted. Social History (Updated 09/30/24 @ 11:58 by Robert Anton MD) Housing: House Alcohol intake: current Comment: 3-4 x a week 2-3 drinks- occ 3-4 drinks Patient Tobacco Use Status: Former Tobacco user Tobacco use type: Cigarette Years Smoked: quit 2018, 1.5 pack a week x 20 years . 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 May resume normal activities. Can follow up PRN. Discussed this with them. Coding Level of Care Code Est Pt Level 3 (13934) Diagnoses Status post right rotator cuff repair Z98.890
--- OUTSIDE RECORDS SUMMARY | 2024-11-09 12:43 | XMS_ITS | Patient Health Record ---
Author Organization [facility] Address [address] [place] [address] Care Team Providers Care Can Dragger Name Role Phone Amy BRUNER, Joe Primary Care Provider Bob Whitlock Unavailable [phone] Allergies No Known Allergies Reason For Referral No Information Medications Medication SIG (Take, Route, Frequency, Duration) Notes Start Date End Date Status Atorvastatin Calcium 40 MG Oral for 90 Active Fenofibrate 160 MG Oral for 90 Active Gabapentin 300 MG Oral for 30 Active Problems Problem Type SNOMED Code ICD Code Onset Dates Problem Status W/U Status Risk Notes Problem Colon cancer screening (948807638) Colon cancer screening (Z12.11) Active confirmed Problem 020749418 Encounter for screening for malignant neoplasm of colon (Z12.11) Active confirmed Problem History of adenomatous polyp of colon (038784379) History of adenomatous polyp of colon (Z86.010) Active confirmed Problem Pre-procedure evaluation check (817798499) Encounter for other preprocedural examination (Z01.818) Active confirmed Problem Diverticulosis o f large intestine without perforation or abscess without bleeding (K57.30) Active confirmed Problem Screening for malignant neoplasm of rectum (512980275) Encounter for screening for malignant neoplasm of rectum (Z12.12) Active confirmed Problem 21516990 Preprocedural examination (Z01.818) Active confirmed Problem 886400629 Long-term use of aspirin therapy (Z79.82) Active confirmed Plan Of Treatment Pending Test Test Name Order Date GI BIOPSY 02/13/2016 Future Test Test Name Order Date COLONOSCOPY 09/27/2015 COLONOSCOPY 05/30/2023 Insurance Providers Payer Name Payer Address Payer Phone Subscriber Number Group Number Insured Name Patient Relationship to Insured Coverage Start Date Coverage End Date [facility] [address] [place], [place] [id number] [phone] [id number] FRANCISCO LAMAS Self - patient is the insured Medical (General) History Medical History History ICD Code Denies MS,DM,CVA,Lung disease,renal dise ase Psoriasis Hyperlipidemia Sleep apnea--uses a CPAP machine Colonoscopy in 01/2013 with 2 small tubu lar adenomas removed Surgical History Surgery Date(Month/Year) Left ankle 1988
--- OUTSIDE RECORDS SUMMARY | 2024-11-09 12:43 | XMS_ITS ---
Author Name [facility] Organization Unknown Encounters Encounter Type Encounter Reason Primary Diagnosis Location Date Ambulatory [facility] 01/24/2024 Care Team Organization Name Specialty Phone Email Start Date End Da te [facility] 2024
--- OUTSIDE RECORDS SUMMARY | 2024-11-09 12:43 | XMS_ITS | Clinical Summary ---
Author Organization [facility] it[facility] Address [address] [place] [address] Care Team Providers Care Cultured Marble Products Maker Name Role Phone Unavailable Primary Care Provider [...] Vaccine ( - 2023-2 5 season) 2023 Depression Screening 04/15/2024 Influenza Vaccine (#1) 2024 RSV Immunization Adult Patie nts (1 [...]
--- OUTSIDE RECORDS SUMMARY | 2024-11-09 12:43 | XMS_ITS | Clinical Summary ---
Author Organization [employer] [facility] Address [address] [place] [address] Care Team Providers Care Muck Miner Blasting Name Role Phone Unavailable Primary Care Provider [...] (1 of 2) 2014 Influenza Vaccine (#1) 2024 RSV Adult > 60+ Yrs or Pregn [...] Advance Directives For more information, please contact: [phone] Documents on File Type Date Recorded Patient Director Speech Language Expl anation Advance Directive and Living Will 08/25/2020 2:15 PM
== END 2024-11-09 12:18 | disposition home or self-care (01) ==
LOC: HO.HOS 11:27
PROVIDERS: PCP Internal Medicine; Visit Provider Orthopaedic Surgery
DX: Z47.89 Encounter for other orthopedic aftercare (principal); M75.121 Complete rotator cuff tear or rupture of right shoulder, not specified as traumatic
CPT/HCPCS: 99213

== ENCOUNTER 2024-11-26 14:02 | Outpatient (AMB) | payer BC, SELFPAY ==
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
[2024-11-26 14:49] VITALS: BP 128/82; PULSE 83; O2SAT 98; BMI 32.1
--- OUTSIDE RECORDS SUMMARY | 2024-11-26 14:52 | XMS_ITS | Clinical Summary ---
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
--- OUTSIDE RECORDS SUMMARY | 2024-11-26 14:52 | XMS_ITS | Clinical Summary ---
Author Organization [facility] ity Address [address] [place] [address] Care Team Providers Care Engine Setter Name Role Phone Unavailable Primary Care Provider [...]
--- OUTSIDE RECORDS SUMMARY | 2024-11-26 14:52 | XMS_ITS | Patient Health Record ---
Author Organization [facility] Address [address] [place] [address] Care Team Providers Care Poultry Farm Supervisor Name Role Phone Amy BRUNER, Joe Primary Care Provider Bob Whitlock Unavailable [phone] Allergies No Known Allergies Reason For Referral No Information Medications Medication SIG (Take, Route, Frequency, Duration) Notes Start Date End Date Status Atorvastatin Calcium 40 MG Oral for 90 Active Fenofibrate 160 MG Oral for 90 Active Gabapentin 300 MG Oral for 30 Active Problems Problem Type SNOMED Code ICD Code Onset Dates Problem Status W/U Status Risk Notes Problem Colon cancer screening (246264005) Colon cancer screening (Z12.11) Active confirmed Problem 097438566 Encounter for screening for malignant neoplasm of colon (Z12.11) Active confirmed Problem History of adenomatous polyp of colon (879371109) History of adenomatous polyp of colon (Z86.010) Active confirmed Problem Pre-procedure evaluation check (706028641) Encounter for other preprocedural examination (Z01.818) Active confirmed Problem Diverticulosis o f large intestine without perforation or abscess without bleeding (K57.30) Active confirmed Problem Screening for malignant neoplasm of rectum (994652531) Encounter for screening for malignant neoplasm of rectum (Z12.12) Active confirmed Problem 79954849 Preprocedural examination (Z01.818) Active confirmed Problem 402695177 Long-term use of aspirin therapy (Z79.82) Active confirmed Plan Of Treatment Pending Test Test Name Order Date GI BIOPSY 02/13/2016 Future Test Test Name Order Date COLONOSCOPY 09/27/2015 COLONOSCOPY 05/30/2023 Insurance Providers Payer Name Payer Address Payer Phone Subscriber Number Group Number Insured Name Patient Relationship to Insured Coverage Start Date Coverage End Date [facility] [address] [place], [place] [id number] [phone] [id number] FRANCISCO LAMAS Self - patient is the insured Medical (General) History Medical History History ICD Code Denies [place],DM,CVA,Lung disease,renal dise ase Psoriasis Hyperlipidemia Sleep apnea--uses a CPAP machine Colonoscopy in 01/2013 with 2 small tubu lar adenomas removed Surgical History Surgery Date(Month/Year) Left ankle 1988
== END 2024-11-26 15:26 | disposition home or self-care (01) ==
LOC: HO.HSMS 14:04
PROVIDERS: PCP Internal Medicine; Visit Provider Physician Assistant Medical
DX: G47.19 Other hypersomnia (principal)
CPT/HCPCS: 99204

== ENCOUNTER 2024-12-24 14:51 | Outpatient (AMB) | payer BC, SELFPAY ==
--- OUTSIDE RECORDS SUMMARY | 2023-09-02 06:50 | XMS_ITS ---
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 Name Role Phone Joe Reyes MD Primary Care Provider Bob Whitlock [phone] REASON FOR VISIT screening, hx polyps Problems Problem Type SNOMED Code ICD Code Onset Dates Problem Status W/U Status Risk Notes Problem Diverticular disease of colon (493814424) Diverticulosis of large intestine without perforation or abscess without bleeding (K57.30) Active confirmed Encounters Encounter Location Date Provider Diagnosis [facility] [address] [place] [id number] 09/02/2023 Bob Forbes Encounter for scre ening colonoscopy Z12.11 ; Colon polyps K63.5 ; Diverticulosis of large intestine without perforation or abscess without bleeding K57.30 and Other hemorrhoids K64.8 Assessments Encounter Date Diagnosis (ICD Code) Assessment Notes Treatment Notes Treatment Clinical Notes Section Notes 09/02/2023 Encounter for screening colonoscopy (ICD-10 - Z12.11) 09/02/2023 Colon polyps (ICD-10 - K63.5) 09/02/2023 Diverticulosis of large intestine without perforation or abscess without bleeding (ICD-10 - K57.30) 09/02/2023 Other hemorrhoids (ICD-10 - K64.8) Plan Of Treatment No Information Progress Notes * FRANCISCO LAMASDOB:1965 (59 yo M)Acc No.[id number]:09/02/2023 COLON WITH MAC Patient: Ines COLBYFELICIAFRANCISCO Provider: Baldev Forbes MD :1965 A ge:58 Y S ex:Male Date:09/02/2023 Address: [place] , [id number] Pcp:Joe Reyes MD Subjective: * Chief Complaints: * 1 . Screening, hx polyps. * Medical History: Objective: * Vitals: Assessment: * Assessment: 1. E ncounter for screening colonoscopy - Z12.11 (Primary) 2 . C olon polyps - K63.5 3 . D iverticulosis of large intestine without perforation or abscess without bleeding - K57.30 4 . O ther hemorrhoids - K64.8 Plan: * Treatment: * Procedure Codes: 4 5385 LESION REMOVAL COLONOSCOPY, Modifiers: PT , [address]150 COLONOSCOPY AND BIOPSY, Modifiers: 59 , PT * * The named appointment provid er may or may not be the originator of this progress note, and it is not deemed complete until electronically signed by the appointment provider. Sign off status: Pending * Provider: Baldev Forbes MD Date: 0 09/02/2023 Generated for Tad wiggins/Angelica/eTransmitting on: 0 12/24/2024 06:21 PM EDT
--- NOTE | 2024-12-24 15:01 | A.OFFPC_ITS ---
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 Accompanied by: Self / Same As Patient Allergies No Known Allergies (No Known Allergies*) Allergy (Verified 12/24/24 15:02) Medication List - Last Reconciled 12/24/24 by Roque Valdez MD [24 Hour Allergy Relief ] apremilast (Otezla) 30 mg PO BID atorvastatin 40 mg PO QPM fenofibrate 160 mg PO DAILY sennosides-docusate sodium 8.6-50 mg (Senna Plus) 1 tab-cap PO BID PRN 1 month Tobacco use date assessed: 09/30/24 Dental Screening Dental Screen Date: 12/24/24 Did you have a dental visit in the last 12 months?: No Did you have a dental problem in the last 6 months where you did not have access to dental care?: No Was dental information given to patient?: No HPI HPI Comments History of Present Illness Details The patient is a 59-year-old male presenting with constipation. The issue began on Saturday, with symptoms of bloating and discomfort in the abdomen, and an inability to have a bowel movement. Despite taking MiraLax and dulcolax, the patient experienced only minimal relief, with liquid stools and no solid bowel movements. The patient typically has regular bowel movements every morning, but this week has noted darker stools, described as dark black, without any significant odor change. He denies dizziness or significant fatigue, although he feels tired of the ongoing issue. A colonoscopy was performed last year with normal results. The patient has been using MiraLax and Dulcolax. He has not experienced any changes in diet or new foods, and constipation is not a usual issue for him. He has been consuming coffee daily, with cream, and denies lactose intolerance. The patient has lost some weight this week due to decreased appetite and reduced food intake, which he attributes to the discomfort from constipation. [facility] Medical History Neck pain Psoriasis FAY on CPAP Hyperlipidemia Surgical History Hx of colonoscopy History of ankle surgery (~1988) Family History Father CAD (coronary artery disease) Stroke Mother Hypothyroidism Hypercholesterolemia Brother No problems noted. Brother No problems noted. Brother No problems noted. Sister No problems noted. Son No problems noted. Son No problems noted. Social History Housing: House Alcohol intake: current Comment: 3-4 x a week 2-3 drinks- occ 3-4 drinks Patient Tobacco Use Status: Former Tobacco user Tobacco use type: Cigarette Years Smoked: quit 2019, 1.5 pack a week x 20 years . 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 1. Little interest or pleasure in doing things: not at all 2. Feeling down, depressed, or hopeless: not at all 3. Trouble falling or staying asleep, or sleeping too much: not at all 4. Feeling tired or having little energy: several days 5. Poor appetite or overeating: not at all 6. Feeling bad about yourself - or that you are a failure or have let yourself or your family down: not at all 7. Trouble concentrating on things, such as reading the newspaper or watching television: not at all 8. Moving or speaking so slowly that other people could have noticed. Or the opposite - being so fidgety or restless that you have been moving around a lot more than usual: not at all 9. Thoughts that you would be better off or of hurting yourself in some way: not at all Total score: 1 Source: Developed by Drs. Bob Valentine, Beverly Johnson, Samuel Estrada and colleagues, with an educational peewee from [employer]. Thrive Questionnaire Date Thrive assessed: 09/30/24 I am a: Patient What is your living situation today?: I have a steady place to live Within the past 12 months, did the food you bought not last and you didn't have the money to get more?: Never true Within the past 12 months, did you worry whether your food would run out before you got money to buy more?: Never true Do you have trouble paying for medicines?: I choose not to answer this question Do you have trouble getting transportation to medical appointments?: No Do you have trouble paying your heating and electricity bill?: I choose not to answer this question Do you have trouble taking care of your child, family member or friend?: I choose not to answer this question Do you have trouble with day-to-day activities such as bathing, preparing meals, shopping, managing finances, etc.?: No Are you currently unemployed and looking for a job?: No Are you interested in more education?: I choose not to answer this question Please select the resources that you would like help with: None Currently or been in a relationship where the following occur: I choose not to answer THRIVE Score: 0 AUDIT C Alcohol Use Questionnaire (AUDIT-C) 1. How often do you have a drink containing alcohol?: 2-3 times a week 2. How many drinks containing alcohol do you have on a typical day when you are drinking?: 3 or 4 3. How often do you have six or more drinks on one occasion?: Less than monthly Total Score: 5 KENROY-7 AMB Questionnaire KENROY-7 Date KENROY - 7 assessed: 09/30/24 Feeling nervous, anxious, or on edge: 1 = Several days Not being able to stop or control worryin = Not at all Worrying too much about different things: 0 = Not at all Trouble relaxin = Not at all Being so restless that it is hard to sit still: 0 = Not at all Becoming easily annoyed or irritable: 0 = Not at all Feeling afraid as if something awful might happen: 0 = Not at all Total KENROY-7 score (0-4 normal; 5-9 mild; 10-14 moderate; 15-21 severe): 1 Source: Developed by Drs. Bob Valentine, Beverly Johnson, Samuel Estrada and colleagues, with an educational peewee from [employer] Review of Systems Const Details: Positives besides what was mentioned in HPI are in BOLD Constitutional: No Weight Change, No Fever, No Chills, No Night Sweats, No Fatigue, No Malaise ENT/Mouth: No Hearing Changes, No Ear Pain, No Nasal Congestion, No Sinus Pain, No Hoarseness, No sore throat, No Rhinorrhea, No Swallowing Difficulty Eyes: No Eye Pain, No Swelling, No Redness, No Foreign Body, No Discharge, No Vision Changes Cardiovascular: No Chest Pain, No SOB, No PND, No Dyspnea on Exertion, No Orthopnea, No Claudication, No Edema, No Palpitations Respiratory: No Cough, No Sputum, No Wheezing, No Smoke Exposure, No Dyspnea Gastrointestinal: No Nausea, No Vomiting, No Diarrhea, No Constipation, No Pain, No Heartburn, No Anorexia, No Dysphagia, No Hematochezia, No Melena, No Flatulence, No Jaundice Genitourinary: No Dysmenorrhea, No DUB, No Dyspareunia, No Dysuria, No Urinary Frequency, No Hematuria, No Urinary Incontinence, No Urgency, No Flank Pain, No Urinary Flow Changes, No Hesitancy Musculoskeletal: No Arthralgias, No Myalgias, No Joint Swelling, No Joint Stiffness, No Back Pain, No Neck Pain, No Injury History Skin: No Skin Lesions, No Pruritis, No Hair Changes, No Breast/Skin Changes, No Nipple Discharge Neuro: No Weakness, No Numbness, No Paresthesias, No Loss of Consciousness, No Syncope, No Dizziness, No Headache, No Coordination Changes, No Recent Falls Psych: No Anxiety/Panic, No Depression, No Insomnia, No Personality Changes, No Delusions, No Rumination, No SI/HI/AH/VH, No Social Issues, No Memory Changes, No Violence/Abuse Hx., No Eating Concerns Heme/Lymph: No Bruising, No Bleeding, No Transfusions History, No Lymphadenopathy Endocrine: No Polyuria, No Polydipsia, No Temperature Intolerance Physical exam (Primary Care) Vital Signs: Last Vital Signs Pulse 88 12/24/24 15:03 BP 136/78 12/24/24 15:03 Pulse Ox 96 12/24/24 15:03 BMI result Body Mass Index 30.4 Tobacco/Smoking Status: Tobacco use Status Tobacco use date assessed 09/30/24 12/24/24 15:06 Patient Tobacco Use Status Former Tobacco user 12/24/24 15:06 Tobacco use type Cigarette 12/24/24 15:06 e-Cigarette/Vaping Use Never Used 12/24/24 15:06 PHQ-9: PHQ-9 Score PHQ-9: Total score 1 12/24/24 15:06 Thrive Assessment: Date of Thrive Assessment Date Thrive assessed 09/30/24 12/24/24 15:06 Currently or been in a relationship where the following occur: I choose not to answer Const Other: Pertinent findings are in BOLD GENERAL APPEARANCE NAD, activity normal for age, well developed/ well nourished, no cyanosis, pallor, or diaphoresis. EYES lids/conjunctiva normal. EARS/NOSE/THROAT Mucous membranes moist, nares normal, lips/teeth normal uvula midline without oral pharyngeal erythema, exudate or swelling TMs normal bilaterally. No lymphangitis/lymphedema. HEAD/NECK normocephalic atraumatic, no facial trauma, neck is supple. RESPIRATORY respiratory effort normal, speaks in full sentences, no tripod position, no accessory muscle use. Lungs clear to auscultation without rhonchi, wheezes, rales CARDIAC Regular rate and rhythm, no edema. ABDOMINAL Soft, ND/NT. No evidence of fluid wave. No pulsatile masses on exam, rebound tenderness, Briseno sign or pain over Mcburney's point. Bloating, BS present. MUSCLES/EXTREMITIES No abnormal range of motion, no swelling. SKIN Warm, pink and dry. No rashes, dermatoses, petechiae or lesions. NEUROLOGICAL Speech is clear and appropriate. Normal level of consciousness. Gait and coordination are normal. 5/5 strength in all extremities. PSYCH Normal mood and affect. Judgement/competence is appropriate Coding Level of Care Code Est Pt Level 1 (76294) Diagnoses Constipation, unspecified constipation type K59.00 Constipation type: unspecified constipation type Assessment & Plan Assessment & Plan (1) Constipation: Code(s): K59.00 - Constipation, unspecified Category: Medical Qualifiers: Constipation type: unspecified constipation type Qualified Code(s): K59.00 - Constipation, unspecified Plan: Miralax, Senna. Told patient to get OTC suppository if Miralax and Senna don't relief his pain. Plan As above Medications: New sennosides-docusate sodium 8.6-50 mg (Senna Plus) 1 tab-cap PO BID PRN 30 caps 0RF constipation 1 month polyethylene glycol 3350 (Miralax) 17 grams PO BID PRN 238 grams 3RF Contipation 1 month
[2024-12-24 15:03] VITALS: BP 136/78; PULSE 88; O2SAT 96; BMI 30.4
--- OUTSIDE RECORDS SUMMARY | 2024-12-24 18:21 | XMS_ITS | Patient Health Record ---
Author Organization [facility] Address [address] [place] [address] Care Team Providers Care Security Tech Name Role Phone Amy BRUNER, Joe Primary Care Provider Bob Whitlock Unavailable [phone] Allergies No Known Allergies Reason For Referral No Information Medications Medication SIG (Take, Route, Frequency, Duration) Notes Start Date End Date Status Atorvastatin Calcium 40 MG Oral for 90 Active Fenofibrate 160 MG Oral for 90 Active Gabapentin 300 MG Oral for 30 Active Problems Problem Type SNOMED Code ICD Code Onset Dates Problem Status W/U Status Risk Notes Problem Colon cancer screening (835104057) Colon cancer screening (Z12.11) Active confirmed Problem 914270491 Encounter for screening for malignant neoplasm of colon (Z12.11) Active confirmed Problem History of adenomatous polyp of colon (758043691) History of adenomatous polyp of colon (Z86.010) Active confirmed Problem Pre-procedure evaluation check (454921976) Encounter for other preprocedural examination (Z01.818) Active confirmed Problem Diverticular disease of colon (567527785) Diverticulosis of large intestine without perforation or abscess without bleeding (K57.30) Active confirmed Problem Screening for malignant neoplasm of rectum (485323729) Encounter for screening for malignant neoplasm of rectum (Z12.12) Active confirmed Problem 85572590 Preprocedural examination (Z01.818) Active confirmed Problem 466032069 Long-term use of aspirin therapy (Z79.82) Active confirmed Plan Of Treatment Pending Test Test Name Order Date GI BIOPSY 02/13/2016 Future Test Test Name Order Date COLONOSCOPY 09/27/2015 COLONOSCOPY 05/30/2023 Insurance Providers Payer Name Payer Address Payer Phone Subscriber Number Group Number Insured Name Patient Relationship to Insured Coverage Start Date Coverage End Date [facility] [address] [place], [place] [id number] [phone] [id number] FRANCISCO LAMAS Self - patient is the insured Medical (General) History Medical History History ICD Code Denies [place],DM,CVA,Lung disease,renal dise ase Psoriasis Hyperlipidemia Sleep apnea--uses a CPAP machine Colonoscopy in 01/2013 with 2 small tubu lar adenomas removed Surgical History Surgery Date(Month/Year) Left ankle 1988
--- OUTSIDE RECORDS SUMMARY | 2024-12-24 18:21 | XMS_ITS | Clinical Summary ---
Author Organization [facility] Address [address] [place] [address] Care Team Providers Care Fire Safety Director Name Role Phone Unavailable Primary Care Provider [...] Advance Directives For more information, please contact: [phone] Documents on File Type Date Recorded Patient Nursing Education Specialist Expl anation Advance Directive and Living Will 08/25/2020 2:15 PM
== END 2024-12-24 16:21 | disposition home or self-care (01) ==
LOC: HO.HMCH 14:52
PROVIDERS: PCP Internal Medicine; Visit Provider Internal Medicine
DX: K59.00 Constipation, unspecified (principal)

== ENCOUNTER → 2025-04-13 09:57 | Outpatient (REF) | payer BC, SELFPAY ==
--- OUTSIDE RECORDS SUMMARY | 2025-04-13 12:57 | XMS_ITS | Clinical Summary ---
Author Organization [facility] ity Address [address] [place] [address] Care Team Providers Care Decorating Consultant Name Role Phone Unavailable Primary Care Provider Unavailabl e Surgical History Surgery Date Site/Laterality Comments FRACTURE SURGERY PROCEDURE:FRACTURE SURGERY;COMMENT:ankle Medical History Medical History Date Comments High cholesterol DX:High cholest minnie Social History Tobacco Use Types Packs/Day Years Used Date Smoking Tobacco: Former Cigarettes 0 Q uit: 08/25/2011 Smokeless Tobacco: Never Alcohol Use Standard Drinks/Week Comments Yes 0 (1 standard drink = 0.6 oz pur e alcohol) Sex and Gender Information Value Date Recorded Sex Assigned at Not on file Legal Sex Male 10:45 AM EST Gender Identity Not on file Sexual Orientation Not on file Plan of Treatment Health Maintenance Due Date Last Done Comments DTaP,Tdap,and Td Vaccines (1 - Tdap) 1983 Pneumococcal Vaccine: 50+ Ye ars (1 of 1 - PCV) 2014 Zoster Vaccines (1 of 2) 2014 Depression Screening 04/15/2024 COVID-19 Vaccine (1 - 2024-2 6 season) 2024 Influenza Vaccine (#1) 2024 RSV Immunization Adult [...]
--- OUTSIDE RECORDS SUMMARY | 2025-04-13 12:57 | XMS_ITS | Patient Health Record ---
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 Role Phone Amy BRUNER, Joe Primary Care Provider Bob Whitlock Unavailable [phone] Allergies No Known Allergies Reason For Referral No Information Medications Medication SIG (Take, Route, Frequency, Duration) Notes Start Date End Date Status Atorvastatin Calcium 40 MG Tablet Oral; Duration: 90 Active Fenofibrate 160 MG Tablet Oral; Duration: 90 Active Gabapentin 300 MG Capsule Oral; Duration: 30 Active Social History Social History Additional Details Category Social Info Options Details Miscellaneous: Marital status: Occupation: [employer]--works from home Section Notes: Nonsmoker; occasional alcoho l Nonsmoker; occasional alcoho l Problems Problem Type SNOMED Code ICD Code Onset Dates Problem Status W/U Status Risk Notes Problem Colon cancer screening (085975819) Colon cancer screening (Z12.11) Active confirmed Problem Screening for malignant neoplasm of colon (826291792) Encounter for screening for malignant neoplasm of colon (Z12.11) Active confirmed Problem History of adenomatous polyp of colon (499695052) History of adenomatous polyp of colon (Z86.010) Active confirmed Problem Pre-procedure evaluation check (119987335) Encounter for other preprocedural examination (Z01.818) Active confirmed Problem Diverticular disease of colon (058878116) Diverticulosis of large intestine without perforation or abscess without bleeding (K57.30) Active confirmed Problem Screening for malignant neoplasm of rectum (048218396) Encounter for screening for malignant neoplasm of rectum (Z12.12) Active confirmed Problem Preprocedural examination (576200447220841) Preprocedural examination (Z01.818) Active confirmed Problem Long-term current use of antiplatelet drug (022331101812173) Long-term use of aspirin therapy (Z79.82) Active confirmed Plan Of Treatment Pending Test Test Name Order Date GI BIOPSY 02/13/2016 Future Test Test Name Order Date COLONOSCOPY 09/27/2015 COLONOSCOPY 05/30/2023 Insurance Providers Payer Name Payer Address Payer Phone Subscriber Number Group Number Insured Name Patient Relationship to Insured Coverage Start Date Coverage End Date [facility] [address] [place], [place] [id number] FRANCISCO LAMAS Self - patient is the insured Medical (General) History Medical History History ICD Code Denies VT,DM,CVA,Lung disease,renal dise ase Psoriasis Hyperlipidemia Sleep apnea--uses a CPAP machine Colonoscopy in 01/2013 with 2 small tubu lar adenomas removed Surgical History Surgery Date(Month/Year) Left ankle 1988
--- OUTSIDE RECORDS SUMMARY | 2025-04-13 12:57 | XMS_ITS | Clinical Summary ---
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
== END ==
LOC: HO.SL 09:57
PROVIDERS: PCP Internal Medicine; Visit Provider Physician Assistant Medical
DX: G47.19 Other hypersomnia (principal)
CPT/HCPCS: 95806